=== PATIENT | male | born 1935 | race Caucasian/White ===

== ENCOUNTER 2017-03-18 15:54 | Inpatient (IN) | payer OTHER, BC ==
[~2017-03-18] VITALS: Ht 162.6 cm; Wt 69.0 kg
[~2017-03-18 15:54] MED LIST: LPT40 PO; SULF-183 PO
[2017-03-18 17:57] LABS: BASO % 0.1 %; BASO ABS # 0.01 K/uL (0-0.2); COMPLETE YES; EOS % 0.1 %; HEMATOCRIT 41.8 % (42-52); IG% 0.4 %; LYMPH % 7.3 %; LYMPH ABS # 1.11 K/uL (1.2-3.4); MEAN CELL VOLUME 87.6 fL (80-100); MEAN CORPUSCULAR HEMOGLOBIN 30.2 pg (25-34); MEAN CORPUSCULAR HGB CONC 34.4 g/dl (32-36); MEAN PLATELET VOLUME 10.8 fL (7.4-10.4); MONO % 12.2 %; NEUT % 79.9 %; PLATELET COUNT 309 K/uL (130-400); RED BLOOD COUNT 4.77 M/uL (4.7-6.1); WHITE BLOOD COUNT 15.14 K/uL (4.8-10.8)
[2017-03-18] MEDS ORDERED: POLYETHYLENE (MIRALAX) 17 GM PACK PO PRN (18:00)
[2017-03-18] MEDS ORDERED: ONDANSETRON INJ 2 MG/ML 2 ML VIAL IV PRN (18:00)
[2017-03-18] MEDS ORDERED: MAGNESIUM HYDROXIDE SUSP 30 ML UDC PO PRN (18:00)
[2017-03-18] MEDS ORDERED: ALUMINUM/MAGNESIUM/SIMETH (MAALOX MAX) 30 ML UDC PO PRN (18:00)
[2017-03-18] MEDS ORDERED: ACETAMINOPHEN 325 MG TAB PO PRN (18:00)
--- NOTE | 2017-03-18 18:02 | DIAGNOSTIC IMAGING REPORT ---
CHEST ONE VIEW PORTABLE CLINICAL HISTORY: Hypoxia. COMPARISON STUDY: Chest radiograph February 18, 2015. FINDINGS: The patient is rotated. This likely accounts for mediastinal widening. Cardiac size is at the upper limits of normal. There is no evidence of pulmonary edema. There is a calcified nodule within the left lower lung. Bibasilar opacities favor atelectasis. There is no evidence of pulmonary edema. Skin fold projects over the left chest. IMPRESSION: 1. Bibasilar opacities which favor atelectasis. 2. Rotated study. 3. No evidence of pulmonary edema. Electronically signed by: Jeremy Mercado M.D. 03/18/2017 5:49 PM Dictated Date/Time: 03/18/2017 5:47 PM
[2017-03-18 18:17] LABS: BLOOD UREA NITROGEN 45 mg/dl (7-18); BUN/CREATININE RATIO 32.1 (10-20); CALCIUM 9.6 mg/dl (8.5-10.1); CARBON DIOXIDE 28 mmol/L (21-32); CHLORIDE 104 mmol/L (98-107); GLUCOSE 107 mg/dl (70-99); POTASSIUM 3.9 mmol/L (3.5-5.1); SODIUM 139 mmol/L (136-145)
[2017-03-18] MEDS ORDERED: SODIUM CHLORIDE 0.9% 500ML 500 ML IV SCH (19:00)
[2017-03-18 19:36] LABS: LYME DISEASE AB IGG NEG (NEG); LYME DISEASE AB IGM NEG (NEG)
[2017-03-18] MEDS ORDERED: CEFTRIAXONE SOD INJ 500 MG in DEXTROSE 5% 50ML 50 ML IV ONE (20:00)
[2017-03-18] MEDS ORDERED: AZITHROMYCIN IV 500 MG in DEXTROSE 5% 250ML 250 ML IV ONE (20:30)
[2017-03-18] MEDS: SODIUM CHLOR 0.45% + 20MEQ KCL 1,000 ML IV SCH (20:38)
--- NOTE | 2017-03-18 21:03 | History and Physical ---
History & Physical Date & Time of Service: March 18, 2017 at 21:03 Chief Complaint: Tachycardia, Hypoxia Primary Care Physician: Van Rivas M.D. Past Medical/Surgical History Medical Problems: (1) Bladder dysfunction Status: Chronic (2) Self-catheterizes urinary bladder Status: Chronic (3) UTI (lower urinary tract infection) Status: Resolved Surgical Problems: (1) H/O cystoscopy Status: Resolved (2) H/O lumbar discectomy Status: Resolved Social History Smoking Status: Never Smoker Marital Status: Occupational Status: retired Immunizations Pneumococcal Date: Feb 20, 2015 Multi-Drug Resistant Organisms History of MDRO: No Allergies Coded Allergies: No Known Allergies (Unverified , 02/18/15) Home Medications Scheduled Atorvastatin (Atorvastatin Calcium), 80 MG PO QAM Sulfamethoxazole-Trimethoprim (Smz-Tmp Ds), 1 TAB PO BID Physical Exam Vital Signs Date Time Temp Pulse Resp B/P Pulse Ox O2 Delivery O2 Flow Rate FiO2 03/18/17 20:00 Nasal Cannula 6.0 Diagnostics Laboratory Results Results Past 24 Hours Test 03/18/17 17:45 Range/Units White Blood Count 15.14 4.8-10.8 K/uL Red Blood Count 4.77 4.7-6.1 M/uL Hemoglobin 14.4 14.0-18.0 g/dL Hematocrit 41.8 42-52 % Mean Corpuscular Volume 87.6 80-100 fL Mean Corpuscular Hemoglobin 30.2 25-34 pg Mean Corpuscular Hemoglobin Concent 34.4 32-36 g/dl Platelet Count 309 130-400 K/uL Mean Platelet Volume 10.8 7.4-10.4 fL Neutrophils (%) (Auto) 79.9 % Lymphocytes (%) (Auto) 7.3 % Monocytes (%) (Auto) 12.2 % Eosinophils (%) (Auto) 0.1 % Basophils (%) (Auto) 0.1 % Neutrophils # (Auto) 12.10 1.4-6.5 K/uL Lymphocytes # (Auto) 1.11 1.2-3.4 K/uL Monocytes # (Auto) 1.84 0.11-0.59 K/uL Eosinophils # (Auto) 0.02 0-0.5 K/uL Basophils # (Auto) 0.01 0-0.2 K/uL RDW Standard Deviation 45.2 36.4-46.3 fL RDW Coefficient of Variation 14.0 11.5-14.5 % Immature Granulocyte % (Auto) 0.4 % Immature Granulocyte # (Auto) 0.06 0.00-0.02 K/uL Erythrocyte Sedimentation Rate 71 0-14 mm/hr D-Dimer 2250 0-500 ug/L FEU Sodium Level 139 136-145 mmol/L Potassium Level 3.9 3.5-5.1 mmol/L Chloride Level 104 98-107 mmol/L Carbon Dioxide Level 28 21-32 mmol/L Anion Gap 7.0 3-11 mmol/L Blood Urea Nitrogen 45 7-18 mg/dl Creatinine 1.40 0.60-1.40 mg/dl Estimated GFR () 53.8 Estimated GFR (Non- 46.5 BUN/Creatinine Ratio 32.1 10-20 Random Glucose 107 70-99 mg/dl Calcium Level 9.6 8.5-10.1 mg/dl Total Creatine Kinase 1624 39-308 U/L Troponin I 0.070 0-0.045 ng/ml C-Reactive Protein 25.50 0-0.29 mg/dl Procalcitonin 0.60 0-0.5 ng/ml Lyme Disease IgG Antibody NEG NEG Lyme Disease IgM Antibody NEG NEG Microbiology Results 03/18/17 Blood Culture, Received Pending 03/18/17 Blood Culture, Received Pending Impression Assessment and Plan admit #[id number] VTE Prophylaxis VTE Risk Assessment Done? Y/N: Yes Risk Level: Moderate Given or contraindicated: Enoxaparin (Lovenox)SQ
[2017-03-18] MEDS: DICLOFENAC SOD 1% GEL 100 GM TUBE EXT SCH (21:51)
--- NOTE | 2017-03-18 21:53 | HISTORY & PHYSICAL EXAMINATION ---
DATE OF ADMISSION: 03/18/2017 CHIEF COMPLAINT: Weakness. HISTORY OF PRESENT ILLNESS: The patient is a very pleasant 81-year-old male, somewhat of a poor historian. The history is pieced together between him, his family, and Dr. Rivas. The patient on Friday apparently was doing relatively well, had come over to the family's house, apparently even picked up a granddaughter, was complaining of a stiff neck, but apparently this is an off and on fairly normal thing for him and in fact even that night some friends stopped by his house and took him out for milk shakes. He notes he was not really hungry whenever they went out to eat but not really because he was not feeling well, just because he was not hungry. He went to bed okay Friday night feeling alright. He woke up on the floor Friday morning, not really sure how he got there, not really able to get up. He apparently notes that it is not that abnormal for him to be on the floor and unable to get up, particularly whenever he does not have anything to pull himself up from, the family believing this is probably due to deconditioning. At any rate, he was down on the floor for most of the day and then family came to check on him and found him down, was able to help him get back up, wanted to take him immediately to the Emergency Room, but he refused and then came to see Dr. Rivas the next day. According to the history that he gave to Dr. Rivas, it was slightly different in that he had not been doing well over the last several days, generalized weakness to the point he was unable to stand or ambulate without assistance, son finding him on the floor beside his bed, unable to stand up, not eating well, symptoms occurring over the last several days, anorectic but not vomiting, posterior neck pain, but no other discomfort. No fevers. So overall, the histories were fairly similar. To me, in terms of review of systems, he denies any fevers, chills or sweats. He does have the neck pain. He has no other pain. No chest pain, no shortness of breath. No abdominal pain, nausea, vomiting, diarrhea. No new edema. REVIEW OF SYSTEMS: Otherwise negative except for as above. PAST MEDICAL HISTORY: Includes aortic atherosclerosis, dyslipidemia, GERD, cerebrovascular disease with prior stroke, chronic bladder dysfunction for which he does a straight cath p.r.n., stage III CKD, vitamin D deficiency. HOME MEDICATIONS: Per his list amount to Lipitor 40 mg daily and vitamin D. ALLERGIES: No known drug allergies. SURGICAL HISTORY: Eye surgery, hemorrhoidectomy, hernia repair, lumbar vertebral fusion. FAMILY HISTORY: Includes dementia and hypertension. SOCIAL HISTORY: No significant alcohol or tobacco. He is retired. He is now and lives alone. ALLERGIES: No known drug allergies. PHYSICAL EXAMINATION: VITAL SIGNS: His initial vitals showed a pulse of about 110, pulse ox was in the low 80s, so he was promptly put on 6 liters and now he is about 93, blood pressure I believe was about 100/60, respiratory rate an unlabored 14. GENERAL: He is awake, alert, oriented, fatigue and a little bit of a difficult historian, but pleasant, in no acute distress. HEENT: Normocephalic, atraumatic. Mucous membranes are slightly dry. CARDIOVASCULAR: Tachycardic without rubs, murmurs or gallops. LUNGS: Diminished air entry bibasilar. No real focal findings, maybe slightly coarse, but no rhonchi or wheezes. No accessory muscle use. ABDOMEN: Soft, nondistended, nontender. No masses or organomegaly. EXTREMITIES: Without cyanosis, clubbing or edema. No calf tenderness. SKIN: Shows no rashes, no pallor or icterus. MENTAL STATE: Shows fair recent and remote recall. Normal mood and affect. Fair judgment and insight. MUSCULOSKELETAL: Yields a little bit of bruising around his left knee, but otherwise no joint deformities, normal alignment and mobility. NEUROLOGIC: Shows cranial nerves II-XII to be grossly intact. Gross motor, upper extremities is about 4/5 and equal; lower extremities, his left leg is a bit weaker, probably 4- to 3+/5, particularly at flexion at the hip. He has a negative straight leg raise and has no sensory deficits. He has also got a fairly weak great toe raise on the left compared to the right, the right is probably more like 4 to 4+/5. LABORATORIES AND DIAGNOSTICS: CBC shows a white count of 15.14, hemoglobin 14.4, platelets 309. Sed rate of 71. Basic metabolic panel with sodium 139, potassium 3.9, chloride 104, CO2 of 28, BUN 45, creatinine 1.4, calcium 9.6, glucose 107. CK total of 1624 with a troponin of 0.070. CRP of 25.5 and a procalcitonin of 0.6. Lyme titers which were ordered initially by Dr. Rivas are negative. D-dimer was 2250. Blood cultures are drawn and pending. Chest x-ray, there appeared to be probably a left very small basilar infiltrate to my review. Radiology noted bibasilar opacities, although they related maybe favoring atelectasis, somewhat rotated film, no pulmonary edema. EKG was sinus tach, no ischemic changes. ASSESSMENT AND PLAN: 1. Weakness. Certainly, this appears to be acute on chronic. The family notes he is fairly deconditioned at baseline and appears the acute weakness probably relates to a small community-acquired pneumonia. We will treat the pneumonia, rehydrate him, have PT and OT work with him, and likely he will need rehab stay. 2. Community-acquired pneumonia with acute hypoxic respiratory failure on admission. He was fairly low and requiring fairly significant supplemental oxygen but now appears much more stable. The x-ray is a little nondescript, but given the clinical picture, I would favor pneumonia. Given his labs with acute phase reactants and inflammatory markers and white count all up, certainly this would very much favor pneumonia. We will start him on Zithromax and Rocephin for community-acquired pneumonia and then follow him closely. 3. Mild dehydration. Gentle IV fluids. 4. Elevated troponin is likely demand ischemia. We will trend, and then certainly if it shows any rise, whatsoever, we will definitely need to get an echo if it stays in an extremely low range, possibly simply follow the enzymes. Certainly, nothing about this appears to be acute coronary ischemia. 5. Mild rhabdomyolysis. Fortunately, he appears to be around his baseline range of kidney function right now. We will trend his CPK and ensure that it is going down and follow up his creatinine in the morning. IV fluids as above. 6. Left leg weakness. This may even be a peripheral sciatica from nerve compression from being down on the floor versus lumbar radiculopathy given that he has got the weak great toe raise as well. For now, we will hydrate and treat the pneumonia, see how he does with PT and OT, and then if it persists, follow up imaging and more directed treatment. 7. CKD stage III. He is actually fortunately around his baseline range. 8. Deep venous thrombosis prophylaxis, Lovenox. 9. Hyperlipidemia. Continue his Lipitor.
[2017-03-18 23:31] VITALS: BP 159/91; PULSE 95; TEMP 37.2; O2SAT 100
[2017-03-18] MEDS ORDERED: NURSING VERBAL MED ORDER ONE (23:45)
[2017-03-18] MEDS ORDERED: ZOLPIDEM TARTRATE 5 MG TAB PO PRN (23:45)
[2017-03-18 23:59] VITALS: O2SAT 99
[2017-03-19] VITALS (10 sets, daily range): BP systolic 124–168; BP diastolic 87–107; PULSE 89–117; TEMP 36.8–37.6; O2SAT 97–100; Ht 162.6 cm; Wt 69.0 kg
[2017-03-19 01:25] LABS: CKMB/CK RATIO 0.3 (0-3.0)
[2017-03-19] MEDS: SODIUM CHLOR 0.45% + 20MEQ KCL 1,000 ML IV SCH ×3 (06:32→19:11)
[2017-03-19] MEDS ORDERED: PNEUMOCOCCAL POLYSACCHARIDES 25 MCG/0.5 ML VIAL/SYR IM. ONE (06:45)
[2017-03-19] MEDS ORDERED: PNEUMOCOCCAL ADMINISTRATION CHARGE ONE (06:45)
--- NOTE | 2017-03-19 07:31 | Progress Note ---
Subjective Date of Service: March 19, 2017. Subjective pt was seen this am and complaining of double vision after voltaren gel was placed on his neck, this corrected with monocular vision. Pt appeared somewhat lethargic, sent for stat CT of head which was unremarkable for acute changes, the pt does have h/o vertigo and usually wears glasses which he did not have. no other focal issues Review of Systems Constitutional: + fatigue, + weakness, No chills, No fever Eyes: + diplopia, No discharge, No eye pain, No redness, No worsening of vision Respiratory: No cough, No shortness of breath Cardiac: No chest pain, No edema Abdomen: No diarrhea, No pain, No vomiting Musculoskeletal: No joint pain, No muscle pain Male : No dysuria, No incontinence Psychiatric: + anxiety, + depression symptoms Objective Vital Signs Date Time Temp Pulse Resp B/P Pulse Ox O2 Delivery O2 Flow Rate FiO2 03/19/17 05:41 107 127/90 03/19/17 04:34 37.0 98 16 144/91 97 Room Air 03/19/17 04:00 98 Nasal Cannula 2.0 03/18/17 23:59 99 Nasal Cannula 4.0 03/18/17 23:31 37.2 95 20 159/91 100 Nasal Cannula 4.0 03/18/17 20:00 Nasal Cannula 6.0 Physical Exam General Appearance: + moderate distress, + thin Eyes: PERRL, EOMI, + abnormal EOM (maybe slight strabismus right eye that corrects ) Neck: supple, no JVD Respiratory/Chest: chest non-tender, lungs clear, normal breath sounds Cardiovascular: regular rate, rhythm Abdomen: normal bowel sounds, non tender, soft Extremities: no pedal edema, no calf tenderness Neurologic/Psychiatric: alert, oriented x 3 Laboratory Results Last 24 Hours Test 03/18/17 17:45 03/19/17 00:24 03/19/17 04:44 White Blood Count 15.14 K/uL Red Blood Count 4.77 M/uL Hemoglobin 14.4 g/dL Hematocrit 41.8 % Mean Corpuscular Volume 87.6 fL Mean Corpuscular Hemoglobin 30.2 pg Mean Corpuscular Hemoglobin Concent 34.4 g/dl Platelet Count 309 K/uL Mean Platelet Volume 10.8 fL Neutrophils (%) (Auto) 79.9 % Lymphocytes (%) (Auto) 7.3 % Monocytes (%) (Auto) 12.2 % Eosinophils (%) (Auto) 0.1 % Basophils (%) (Auto) 0.1 % Neutrophils # (Auto) 12.10 K/uL Lymphocytes # (Auto) 1.11 K/uL Monocytes # (Auto) 1.84 K/uL Eosinophils # (Auto) 0.02 K/uL Basophils # (Auto) 0.01 K/uL RDW Standard Deviation 45.2 fL RDW Coefficient of Variation 14.0 % Immature Granulocyte % (Auto) 0.4 % Immature Granulocyte # (Auto) 0.06 K/uL Erythrocyte Sedimentation Rate 71 mm/hr D-Dimer 2250 ug/L FEU Sodium Level 139 mmol/L Potassium Level 3.9 mmol/L Chloride Level 104 mmol/L Carbon Dioxide Level 28 mmol/L Anion Gap 7.0 mmol/L Blood Urea Nitrogen 45 mg/dl Creatinine 1.40 mg/dl Estimated GFR () 53.8 Estimated GFR (Non- 46.5 BUN/Creatinine Ratio 32.1 Random Glucose 107 mg/dl Calcium Level 9.6 mg/dl Total Creatine Kinase 1624 U/L 1166 U/L Troponin I 0.070 ng/ml 0.132 ng/ml C-Reactive Protein 25.50 mg/dl Procalcitonin 0.60 ng/ml Lyme Disease IgG Antibody NEG Lyme Disease IgM Antibody NEG Creatine Kinase MB 3.6 ng/ml Creatine Kinase MB Ratio 0.3 Assessment and Plan 81 M from pcp office with weakness, found on floor by family and unable to get up Weakness. acute on chronic, fairly deconditioned at baseline possible exacerbated by community-acquired pneumonia. PT and OT Diplopia, CT negative ? side affect from voltaren gel? discontinued Community-acquired pneumonia with acute hypoxic respiratory distress on admission. Zithromax and Rocephin Mild dehydration. IV fluids. Elevated troponin / demand ischemia. Does not appear to be acute coronary ischemia. Mild rhabdomyolysis. Hydrate and follow CKD stage III. Deep venous thrombosis prophylaxis, Lovenox.
--- NOTE | 2017-03-19 08:05 | Clinical Documentation Query ---
TANESHA Ramirez : CLINICAL DOCUMENTATION QUERY Clinical documentation includes a diagnosis of: Acute Respiratory Failure. Due to stringent requirements by our coding department, multiple clinical indicators associated with this diagnosis must be present in order for this to be coded/captured within the medical record. If appropriate, please document 2 or more of the following clinical indicators in daily progress notes and the discharge summary. If you feel the diagnosis of acute respiratory failure was made in error, or do not agree with it, simply discontinue documentation thereof. Acute Respiratory Failure indicators include: * Respirations >28 * Air hunger * Use of accessory muscles of respiration * Inability to speak in full sentences * Cyanosis * Pulse ox <90% RA or <95% on O2 *pH <7.35 or >7.45 * pO2 < 60 mm Hg (or 10mm below COPD patient's baseline) * pCO2 >50mm Hg (or 10mm above COPD patient's baseline) * mechanical ventilation * Increased work of breathing * Tachypnea Thank You, Daren Hutchinson, RN [phone]
[2017-03-19] MEDS: DICLOFENAC SOD 1% GEL 100 GM TUBE EXT SCH (08:26)
[2017-03-19] MEDS: ATORVASTATIN 40 MG TAB PO SCH (08:27)
[2017-03-19] MEDS: ENOXAPARIN 40 MG/0.4 ML SYR SQ SCH (08:29)
[2017-03-19 08:51] LABS: BASO % 0.2 %; BASO ABS # 0.02 K/uL (0-0.2); COMPLETE YES; EOS % 0.2 %; HEMATOCRIT 40.4 % (42-52); IG% 0.2 %; LYMPH % 8.4 %; LYMPH ABS # 1.07 K/uL (1.2-3.4); MEAN CELL VOLUME 87.4 fL (80-100); MEAN CORPUSCULAR HEMOGLOBIN 29.4 pg (25-34); MEAN CORPUSCULAR HGB CONC 33.7 g/dl (32-36); MEAN PLATELET VOLUME 10.2 fL (7.4-10.4); MONO % 8.6 %; NEUT % 82.4 %; PLATELET COUNT 303 K/uL (130-400); RED BLOOD COUNT 4.62 M/uL (4.7-6.1); WHITE BLOOD COUNT 12.74 K/uL (4.8-10.8)
[2017-03-19 09:25] LABS: BUN/CREATININE RATIO 25.8 (10-20); CREATININE 1.2 mg/dl (0.60-1.40); POTASSIUM 3.8 mmol/L (3.5-5.1)
[2017-03-19 09:29] LABS: CALCIUM 9.3 mg/dl (8.5-10.1)
[2017-03-19 09:36] LABS: CKMB/CK RATIO 0.4 (0-3.0)
--- NOTE | 2017-03-19 11:07 | DIAGNOSTIC IMAGING REPORT ---
CT HEAD WITHOUT CONTRAST (CT) CLINICAL HISTORY: diplopia WEAKNESS COMPARISON STUDY: MRI the brain dated 02/18/2015 TECHNIQUE: Axial CT of the brain is performed from the vertex to the skull base. IV contrast was not administered for this examination. CT DOSE: 537.48 mGy.cm FINDINGS: No intra or extra-axial mass lesions are visualized. There is no CT evidence of acute cortical infarction. There is no evidence of midline shift. There is no acute hemorrhage. No calvarial fractures are visualized. There are patchy white matter hypodensities likely on a small vessel basis. There is an old lacunar infarct within the left thalamus and basal ganglia. There is an old infarct involving the right basal ganglia and right frontal periventricular deep white matter. There are old lacunar infarcts within the cerebellum. There is no evidence of pathologic ventricular dilatation. There is no evidence of acute sinusitis IMPRESSION: Old ischemic changes. No acute findings. Electronically signed by: Bashir Gee M.D. 03/19/2017 11:05 AM Dictated Date/Time: 03/19/2017 11:03 AM
--- NOTE | 2017-03-19 16:34 | ECHOCARDIOGRAM REPORT ---
*NOTICE TO RECEIVING [employer]Y This information is strictly Confidential and protected under [place] law. [place] law prohibits you from making any further disclosure of this information unless further disclosure is expressly permitted by the written consent of the person to whom it pertains or is authorized by law. A general authorization for the release of medical or other information is not sufficient for this purpose. Hospital accepts no responsibility if the information is made available to any other person, INCLUDING THE PATIENT. Interpretation Summary * Name: ISSA PERALES Study Date: 03/19/2017 03:25 PM BP: 159/107 mmHg * Patient Location: C.2E\S\E210\S\1 HR: 103 * : 1935 (M/d/yyyy) Gender: Male Height: 64 in * Age: 81 yrs Ethnicity: CA Weight: 148 lb * Ordering Physician: Ming Gomez * Referring Physician: Ming Gomez * Performed By: Donna Cavazos RDCS * * Reason For Study: CHEST PAIN * BSA: 1.7 m2 * -- Conclusions -- * Left ventricular systolic function is normal. * No regional wall motion abnormalities noted. * Ejection Fraction = 65-70%. * There is mild concentric left ventricular hypertrophy. * Aortic valve sclerosis. Procedure Details * A complete two-dimensional transthoracic echocardiogram was performed (2D, M-mode, Doppler and color flow Doppler). Left Ventricle * The left ventricle is normal in size. * There is mild concentric left ventricular hypertrophy. * Ejection Fraction = 65-70%. * Left ventricular systolic function is normal. * No regional wall motion abnormalities noted. Right Ventricle * The right ventricle is not well visualized. * The right ventricular systolic function is normal as assessed by tricuspid annular plane systolic excursion (TAPSE) (normal >1.5 cm). Atria * The left atrium is mildly dilated. * Right atrium not well visualized. * No ASD detected; PFO is not assessed. Mitral Valve * The mitral valve is grossly normal. * Significant mitral regurgitation is absent. Tricuspid Valve * The tricuspid valve is not well visualized, but is grossly normal. * Significant tricuspid regurgitation is absent. Aortic Valve * The aortic valve is not well visualized. * The aortic valve opens well. * Aortic valve sclerosis moderate, without significant aortic valvular stenosis. * There is no significant aortic regurgitation. Pulmonic Valve * The pulmonic valve is not well visualized. Great Vessels * The aortic root is normal size. * The pulmonary is not well visualized. Pericardium/Pleural * There is no pericardial effusion. Great Vessels * IVC not well seen. Left Ventricular Diastolic Function * Grade I diastolic dysfunction, (abnormal relaxation pattern). MMode 2D Measurements and Calculations IVSd 1.7 cm IVSs 2.1 cm LVIDd 3.7 cm LVIDs 2.3 cm LVPWd 1.7 cm LVPWs 1.8 cm IVS/LVPW 1.0 FS 37.0 % EDV(Teich) 58.1 ml ESV(Teich) 18.7 ml EF(Teich) 67.8 % EDV(cubed) 50.6 ml ESV(cubed) 12.6 ml EF(cubed) 75.0 % % IVS thick 19.1 % % LVPW thick 9.0 % LV mass(C)d 257.5 grams LV mass(C)dI 149.5 grams/m\S\2 LV mass(C)s 190.7 grams LV mass(C)sI 110.7 grams/m\S\2 SV(Teich) 39.3 ml SI(Teich) 22.8 ml/m\S\2 SV(cubed) 37.9 ml SI(cubed) 22.0 ml/m\S\2 LA dimension 3.9 cm LVAd ap4 23.7 cm\S\2 LVLd ap4 7.5 cm EDV(MOD-sp4) 62.4 ml EDV(sp4-el) 63.4 ml LVAs ap4 12.7 cm\S\2 LVLs ap4 6.7 cm ESV(MOD-sp4) 24.5 ml ESV(sp4-el) 20.6 ml EF(MOD-sp4) 60.8 % EF(sp4-el) 67.6 % LVAd ap2 26.7 cm\S\2 LVLd ap2 8.1 cm EDV(MOD-sp2) 72.6 ml EDV(sp2-el) 74.6 ml LVAs ap2 13.2 cm\S\2 LVLs ap2 6.8 cm ESV(MOD-sp2) 23.3 ml ESV(sp2-el) 21.6 ml EF(MOD-sp2) 67.9 % EF(sp2-el) 71.1 % LVLd %diff 7.1 % EDV(MOD-bp) 69.8 ml LVLs %diff 1.7 % ESV(MOD-bp) 23.7 ml EF(MOD-bp) 66.0 % SV(MOD-sp4) 38.0 ml SI(MOD-sp4) 22.0 ml/m\S\2 SV(MOD-sp2) 49.3 ml SI(MOD-sp2) 28.6 ml/m\S\2 SV(MOD-bp) 46.1 ml SI(MOD-bp) 26.8 ml/m\S\2 SV(sp4-el) 42.9 ml SI(sp4-el) 24.9 ml/m\S\2 SV(sp2-el) 53.0 ml SI(sp2-el) 30.8 ml/m\S\2 Doppler Measurements and Calculations MV E max leigh 56.1 cm/sec MV A max leigh 118.1 cm/sec MV E/A 0.47 MV dec time 0.21 sec Ao V2 max 169.5 cm/sec Ao max PG 11.5 mmHg Ao max PG (full) 7.8 mmHg LV V1 max PG 3.7 mmHg LV V1 max 95.6 cm/sec
[2017-03-19] MEDS ORDERED: NURSING VERBAL MED ORDER ONE (17:45)
[2017-03-19] MEDS ORDERED: CEFTRIAXONE SOD INJ 500 MG in DEXTROSE 5% 50ML 50 ML IV SCH (19:00)
[2017-03-19] MEDS ORDERED: AZITHROMYCIN IV 250 MG in DEXTROSE 5% 250ML 250 ML IV SCH (20:00)
[2017-03-19] MEDS: BOOST VANILLA PO SCH ×2 (20:24)
[2017-03-20] VITALS (8 sets, daily range): BP systolic 120–170; BP diastolic 75–103; PULSE 94–108; TEMP 36.5–37.4; O2SAT 92–100
[2017-03-20] MEDS ORDERED: BACLOFEN 10 MG TAB PO STA (02:10)
[2017-03-20] MEDS ORDERED: NURSING VERBAL MED ORDER ONE ×2 (02:15→05:00)
[2017-03-20] MEDS: METOPROLOL TARTRATE 1 MG/ML VIAL IV PRN (05:07)
[2017-03-20] MEDS ORDERED: HydrALAZINE HCL 20 MG/ML VIAL IV PRN (07:45)
[2017-03-20] MEDS: BACLOFEN 10 MG TAB PO PRN (08:28)
[2017-03-20] MEDS: ENOXAPARIN 40 MG/0.4 ML SYR SQ SCH (08:29)
[2017-03-20] MEDS: ATORVASTATIN 40 MG TAB PO SCH (08:30)
[2017-03-20] MEDS ORDERED: KETOROLAC TROMETHAMINE 15 MG/ML VIAL IV ONE (10:00)
[2017-03-20] MEDS ORDERED: METHYLPREDNISOLONE IV 40 MG in SYRINGE 0 ML IV ONE (10:00)
[2017-03-20] MEDS: BOOST VANILLA PO SCH ×4 (10:37→19:53)
[2017-03-20] MEDS: LEVOFLOXACIN / D5W 500 MG in PREMIXED IN D5W 100 ML IV SCH (10:37)
--- NOTE | 2017-03-20 11:21 | DIAGNOSTIC IMAGING REPORT ---
WRIST MIN 3 VIEWS ROUTINE CLINICAL HISTORY: Right wrist pain. COMPARISON: None FINDINGS: There is chondrocalcinosis within the TFCC. There is mild arthritis of the distal radioulnar joint. No fracture or suspicious lesion is present. There are soft tissue swelling of the right wrist. IMPRESSION: 1. No acute fracture or dislocation of the right wrist. 2. 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 Chondrocalcinosis within the TFCC. 3. Right wrist soft tissue swelling. Electronically signed by: Jeremy Mercado M.D. 03/20/2017 11:20 AM Dictated Date/Time: 03/20/2017 11:18 AM
--- NOTE | 2017-03-20 13:33 | Progress Note ---
Subjective Date of Service: March 20, 2017. Subjective pt has torticolis and right wrist pain today, has some swelling of right wrist, dose not recollect fall injury to wrist Review of Systems Constitutional: No chills, No fever Respiratory: No cough, No shortness of breath, No sputum Cardiac: No chest pain, No edema Abdomen: No diarrhea, No nausea, No pain, No vomiting Male : + problem reported (does require straight cath), No dysuria, No urinary frequency Psychiatric: No anhedonism, No depression symptoms Objective Vital Signs Date Time Temp Pulse Resp B/P Pulse Ox O2 Delivery O2 Flow Rate FiO2 03/20/17 05:07 107 144/103 03/20/17 04:26 37.4 107 22 170/103 99 Nasal Cannula 2.0 03/20/17 04:00 99 Nasal Cannula 2.0 03/20/17 04:00 Nasal Cannula 2.0 03/20/17 00:01 Nasal Cannula 2.0 03/19/17 23:55 37.6 106 26 167/100 99 Nasal Cannula 1.0 163/105 03/19/17 20:00 Nasal Cannula 2.0 03/19/17 19:49 37.4 103 22 168/96 100 Nasal Cannula 2.0 03/19/17 16:22 36.8 97 20 155/93 97 Nasal Cannula 2.0 03/19/17 16:00 Nasal Cannula 2.0 03/19/17 12:26 90 159/107 03/19/17 12:00 Nasal Cannula 2.0 03/19/17 11:18 36.8 89 18 163/106 99 2.0 03/19/17 08:45 117 98 03/19/17 08:00 Nasal Cannula 2.0 Physical Exam General Appearance: WD/WN, + moderate distress Neck: no JVD, + pertinent finding (has tenderness to left posterior neck to palpitations) Respiratory/Chest: chest non-tender, lungs clear, normal breath sounds Cardiovascular: regular rate, rhythm, no murmur Abdomen: normal bowel sounds, non tender, soft Extremities: no pedal edema, no calf tenderness Laboratory Results Last 24 Hours Test 03/19/17 08:43 White Blood Count 12.74 K/uL Red Blood Count 4.62 M/uL Hemoglobin 13.6 g/dL Hematocrit 40.4 % Mean Corpuscular Volume 87.4 fL Mean Corpuscular Hemoglobin 29.4 pg Mean Corpuscular Hemoglobin Concent 33.7 g/dl Platelet Count 303 K/uL Mean Platelet Volume 10.2 fL Neutrophils (%) (Auto) 82.4 % Lymphocytes (%) (Auto) 8.4 % Monocytes (%) (Auto) 8.6 % Eosinophils (%) (Auto) 0.2 % Basophils (%) (Auto) 0.2 % Neutrophils # (Auto) 10.49 K/uL Lymphocytes # (Auto) 1.07 K/uL Monocytes # (Auto) 1.10 K/uL Eosinophils # (Auto) 0.03 K/uL Basophils # (Auto) 0.02 K/uL RDW Standard Deviation 44.6 fL RDW Coefficient of Variation 13.8 % Immature Granulocyte % (Auto) 0.2 % Immature Granulocyte # (Auto) 0.03 K/uL Sodium Level 136 mmol/L Potassium Level 3.8 mmol/L Chloride Level 102 mmol/L Carbon Dioxide Level 25 mmol/L Anion Gap 9.0 mmol/L Blood Urea Nitrogen 31 mg/dl Creatinine 1.20 mg/dl Est Creatinine Clear Calc Drug Dose 39.8 ml/min Estimated GFR () 64.9 Estimated GFR (Non- 56.0 BUN/Creatinine Ratio 25.8 Random Glucose 131 mg/dl Calcium Level 9.3 mg/dl Total Creatine Kinase 773 U/L Creatine Kinase MB 2.8 ng/ml Creatine Kinase MB Ratio 0.4 Troponin I 0.098 ng/ml Assessment and Plan 81 M from pcp office with weakness, found on floor by family and unable to get up Pt was observed to have Henri Hernandez breathing pattern while napping, given diplopia, torticolis and not this 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 acute on chronic, fairly deconditioned at baseline possible exacerbated by community-acquired pneumonia. Does have a urine culture pending and since chronic straight cath, can have issue, PT and OT Diplopia, CT negative ? side affect from voltaren gel? discontinued and symptoms resolved Torticolis, one dose steroids, toradol, may also consider warm compress right wrist,no fracture, use splint Community-acquired pneumonia with acute hypoxic respiratory distress on admission. Zithromax and Rocephin Elevated troponin / demand ischemia. Does not appear to be acute coronary ischemia. CKD stage III. Deep venous thrombosis prophylaxis, Lovenox.
[2017-03-20] MEDS: PROSOURCE NOCARB 30ML/PKT PO SCH (19:53)
--- NOTE | 2017-03-20 20:51 | DIAGNOSTIC IMAGING REPORT ---
ORBIT RADIOGRAPHS 3 VIEWS HISTORY: pre-MRI screening. COMPARISON: None. FINDINGS: There are no radiopaque foreign bodies identified within the orbits. IMPRESSION: No radiopaque foreign bodies identified within the orbits. Electronically signed by: Angel Iqbal M.D. 03/20/2017 8:50 PM Dictated Date/Time: 03/20/2017 8:49 PM
--- NOTE | 2017-03-20 21:37 | DIAGNOSTIC IMAGING REPORT ---
Brain MRI WITHOUT CONTRAST HISTORY: Stroke eval for cava TECHNIQUE: Multiplanar multisequence MRI of the brain was performed without the use of contrast. COMPARISON STUDY: 02/19/2015 FINDINGS: Diffusion-weighted images show several small cortical infarcts in the cerebellar hemispheres bilaterally. Small acute ischemic focus medial aspect right occipital lobe. This suggestive of watershed type process. Moderate chronic small vessel change of the periventricular deep matter regions. Several old periventricular infarct. Age-related atrophy. Mild compensatory prominence of the ventricular system. Sella and parasellar regions are unremarkable. IMPRESSION: 1. Several small acute ischemic foci involving the inferior cerebellar hemispheres bilaterally as well as medial right occipital lobe. 2. Chronic and age-related change as described Electronically signed by: Angel Iqbal M.D. 03/20/2017 9:35 PM Dictated Date/Time: 03/20/2017 9:32 PM
[2017-03-21] VITALS (7 sets, daily range): BP systolic 107–176; BP diastolic 78–96; PULSE 80–123; TEMP 36.3–37.1; O2SAT 90–93
[2017-03-21] MEDS ORDERED: GADAVIST IV PRN (01:30)
[2017-03-21 06:05] LABS: HEMATOCRIT 38.3 % (42-52); MEAN CELL VOLUME 84.9 fL (80-100); MEAN CORPUSCULAR HEMOGLOBIN 28.6 pg (25-34); MEAN CORPUSCULAR HGB CONC 33.7 g/dl (32-36); MEAN PLATELET VOLUME 10.8 fL (7.4-10.4); PLATELET COUNT 349 K/uL (130-400); RED BLOOD COUNT 4.51 M/uL (4.7-6.1); WHITE BLOOD COUNT 17.91 K/uL (4.8-10.8)
--- NOTE | 2017-03-21 06:33 | DIAGNOSTIC IMAGING REPORT ---
MRI OF THE BRAIN WITHOUT AND WITH IV CONTRAST CLINICAL HISTORY: Cerebrovascular accident. Tachycardia. COMPARISON STUDY: Head CT March 19, 2017 and MRI of the brain March 20, 2017 at 9:00 PM. TECHNIQUE: Utilizing a 1.5 Chely magnet and dedicated coil, multiplanar, multiecho imaging of the brain was performed pre and postcontrast administration. IV administration of 6.8 mL of Gadavist contrast was uneventful. FINDINGS: This study is viewed in conjunction with the unenhanced exam which was performed at 9:02 PM. These postcontrast images demonstrate no intracranial mass or pathologic enhancement. The small acute infarcts within the bilateral cerebellar hemispheres do not enhance. There are old lacunar infarcts within the cerebellar hemispheres, left basal ganglia as well as the right basal ganglia. No obstruction collections are present. Ventricular system is stable. Basilar cisterns are patent. IMPRESSION: 1. No intracranial mass or pathologic enhancement. 2. The small acute infarcts within the bilateral cerebellar hemispheres are better depicted on the unenhanced MRI which was performed earlier tonight. These demonstrate no enhancement. 3. Numerous old infarcts, as described above. Electronically signed by: Jeremy Mercado M.D. 03/21/2017 6:32 AM Dictated Date/Time: 03/21/2017 6:28 AM
--- NOTE | 2017-03-21 06:48 | DIAGNOSTIC IMAGING REPORT ---
MRA OF THE INTRACRANIAL CIRCULATION WITHOUT CONTRAST CLINICAL HISTORY: Cerebrovascular accident. COMPARISON STUDY: MRA of the intracranial circulation February 19, 2015. TECHNIQUE: Utilizing a 1.5 Chely magnet and 3-D [id number] technique, unenhanced MRA of the intracranial circulation was obtained. FINDINGS: This exam is mildly compromised by artifact. The M1, M2, A1 and A2 segments are patent. There is smooth mild to moderate narrowing of the distal right vertebral artery. There is also suspected narrowing of the mid to distal aspect of the right posterior cerebral artery. No abrupt vessel cut off is identified. No intracranial aneurysm is identified. IMPRESSION: 1. No intracranial aneurysm or abrupt vessel cut off. 2. Study mildly compromised by artifact. 3. Moderate stenosis of the distal right vertebral artery as well as the mid to distal right posterior cerebral artery. Electronically signed by: Jeremy Mercado M.D. 03/21/2017 6:46 AM Dictated Date/Time: 03/21/2017 6:43 AM
[2017-03-21] MEDS ORDERED: PHARMACIST DISCHARGE MED REC CONSULT PRN (07:30)
--- NOTE | 2017-03-21 07:33 | Progress Note ---
Subjective Date of Service: March 21, 2017. Subjective Pt is slightly lethargic today but appears stable Review of Systems Constitutional: No chills, No fever Respiratory: No cough, No shortness of breath, No sputum Cardiac: No chest pain, No edema, No orthopnea Abdomen: No diarrhea, No nausea, No pain, No vomiting Male : No dysuria, No urinary frequency Objective Vital Signs Date Time Temp Pulse Resp B/P Pulse Ox O2 Delivery O2 Flow Rate FiO2 03/21/17 04:00 92 Nasal Cannula 4.0 03/21/17 04:00 37.1 80 21 134/82 92 Nasal Cannula 4.0 03/21/17 00:15 36.8 107 20 132/90 91 Nasal Cannula 3.0 03/21/17 00:15 91 Nasal Cannula 3.0 03/20/17 20:00 36.9 96 136/87 98 Nasal Cannula 2.0 03/20/17 20:00 Nasal Cannula 2.0 03/20/17 16:00 Nasal Cannula 2.0 03/20/17 15:55 36.8 94 24 120/79 92 Nasal Cannula 2.0 03/20/17 12:00 99 Nasal Cannula 2.0 03/20/17 11:17 36.5 108 20 137/75 93 2.0 03/20/17 08:00 100 Nasal Cannula 2.0 03/20/17 07:48 37.2 96 18 147/91 99 2.0 Physical Exam General Appearance: WD/WN, + mild distress Eyes: PERRL, EOMI Cardiovascular: regular rate, rhythm, no murmur Abdomen: normal bowel sounds, non tender, soft Extremities: no pedal edema, no calf tenderness Neurologic/Psychiatric: alert, oriented x 3, + motor weakness Laboratory Results Last 24 Hours Test 03/21/17 05:46 03/21/17 07:27 White Blood Count 17.91 K/uL Red Blood Count 4.51 M/uL Hemoglobin 12.9 g/dL Hematocrit 38.3 % Mean Corpuscular Volume 84.9 fL Mean Corpuscular Hemoglobin 28.6 pg Mean Corpuscular Hemoglobin Concent 33.7 g/dl RDW Standard Deviation 41.7 fL RDW Coefficient of Variation 13.5 % Platelet Count 349 K/uL Mean Platelet Volume 10.8 fL Creatinine 1.00 mg/dl Est Creatinine Clear Calc Drug Dose 47.7 ml/min Estimated GFR () 80.9 Estimated GFR (Non- 69.8 Assessment and Plan 81 M from pcp office with weakness, found on floor by family and unable to get up, MRI reveals cerebellar stroke Pt was observed to have Henri Hernandez breathing pattern while napping, given diplopia, torticolis acute weakened state, perfromed MRI 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 acute on chronic, fairly deconditioned at baseline possible pending uti eval, PT and OT [facility], one dose steroids, toradol, may also consider warm compress right wrist,no fracture, use splint Elevated troponin / demand ischemia. Does not appear to be acute coronary ischemia. CKD stage III. Deep venous thrombosis prophylaxis, Lovenox.
--- NOTE | 2017-03-21 07:35 | DIAGNOSTIC IMAGING REPORT ---
MR ANGIOGRAM OF THE NECK COMBO CLINICAL HISTORY: Strokelike symptoms. COMPARISON STUDY: MR angiogram of the neck dated 02/19/2015. TECHNIQUE: Axial 3-D [id number] MR angiography of the neck is performed. Subsequently, following the IV administration of 6.8 cc of Gadavist coronal MR angiogram of the neck was performed to corroborate the findings. 3-D reformats are created and assessed. All measurements were calculated based on NASCET criteria. FINDINGS: The examination is degraded by motion artifact. Visualized portions of the thoracic aorta are normal in caliber. The arch demonstrates standard 3-vessel anatomy. The subclavian arteries are widely patent bilaterally. The right common carotid artery is widely patent, as are the right internal and external carotid arteries. The left common carotid artery is widely patent, as are the left internal and external carotid arteries. The vertebral arteries are patent and codominant. The partially visualized intracranial vessels at the skull base appear patent. Jugular veins are patent. IMPRESSION: Unremarkable MR angiogram of the neck. Electronically signed by: Dennis Escalante M.D. 03/21/2017 7:34 AM Dictated Date/Time: 03/21/2017 7:30 AM
[2017-03-21] MEDS: PROSOURCE NOCARB 30ML/PKT PO SCH ×2 (08:06→21:03)
[2017-03-21] MEDS: ATORVASTATIN 40 MG TAB PO SCH (08:06)
[2017-03-21] MEDS: ENOXAPARIN 40 MG/0.4 ML SYR SQ SCH (08:07)
[2017-03-21 08:16] LABS: ESTIMATED AVERAGE GLUCOSE 120 mg/dl; HA1C FLAG Normal (Normal)
[2017-03-21] MEDS ORDERED: ASPIRIN 325 MG ECTAB PO SCH (09:00)
[2017-03-21] MEDS: BOOST VANILLA PO SCH ×4 (10:05→21:03)
--- NOTE | 2017-03-21 10:50 | Neurology Consultation ---
Neurology Consultation Date of Consultation: March 21, 2017. Attending Physician: Ming Gomez M.D. Primary Care Physician: Van Rivas M.D. Reason for Consultation: CVA History of Present Illness Source: patient, family, clinic records, hospital records patient is a poor historian and history was taken from patient, clinic and hospital notes This is an 81 yo m that was sent to the hospital from his PCP office after a fall which occurred at home. According to documented notes and patient the patient had fallen at some point on Friday and was unable to get up for an extended period of time. The patient is unable to state what had happened that he ended up on the floor. He notes he tried to get up however was unable to because there was nothing for him to grab a hold of to get him up. His son had found him on the floor and tried to encourage him to go to the ED but refused and went to the PCP office. According to the notes the patient has had increasing generalized weakness over the past several days as well as anorectic since his from metastatic pancreatic cancer. Since there was concern of his generalized weakness and fall it was recommended to be admitted to the hospital for further evaluation. When admitted to the hospital initial findings reflected an infection that was secondary to CAP and patient was placed on Azithro and Rocephin. He was also noted to demand ischemia and mild rhabdomyolysis. Patient was observed to have Henri bradford breathing pattern overnight, ongoing weakness and an episode of diplopia (possibly secondary to voltaren gel?) so it is understood that further [employer]TAIN evaluation was warranted. An MRI was completed and it was noted that the patient had an infarct in the bilateral inferior cerebellar regions and right occipital as well as moderate stenosis of the distal right vertebral artery and posterior cerebral artery. Patient has had a CVA in the past, 2014. He was started on Lipitor and Plavix as well as ASA at this time. According to the notes the patient actually self discontinued the two drugs approx dec 2016. When asked about the statin he stopped that medication because of knee pain and it is unclear why the plavix was stopped. He did try a lower dose of the lipitor prior to self d/c. He does have a history of hyperlipidemia. He also has a history of "the shakes" which primarily affects his right UE and has been ongoing for years. Multiple family members also had similar symptoms. Past Medical/Surgical History CVA 2014 GERD Urinary Retention- requires a straight cath qid CKD III- BL 1.3-1.5 cr Social History Smoking Status: Never smoker Smokeless Tobacco Use: No Alcohol Use: none Drug Use: none Marital Status: Housing Status: lives alone Occupation Status: retired Allergies Coded Allergies: Gadolinium (Verified Adverse Reaction, Mild, GI SYMPTOMS, 03/21/17) developed nausea Current Inpatient Medications Current Inpatient Medications Medications (Trade) Dose Ordered Sig/Geremias Route Start Time Stop Time Status Last Admin Dose Admin Acetaminophen (Tylenol Tab) 650 mg Q4H PRN PO 03/18/17 18:00 04/17/17 17:59 03/20/17 00:38 650 MG Al Hydrox/Mg Hydrox/Simethicone (Maalox Max Susp) 15 ml Q4H PRN PO 03/18/17 18:00 04/17/17 17:59 Magnesium Hydroxide (Milk Of Magnesia Susp) 30 ml Q12H PRN PO 03/18/17 18:00 04/17/17 17:59 Ondansetron HCl (Zofran Inj) 4 mg Q6H PRN IV 03/18/17 18:00 04/17/17 17:59 Polyethylene (Miralax Powder Packet) 17 gm DAILY PRN PO 03/18/17 18:00 04/17/17 17:59 Atorvastatin Calcium (Lipitor Tab) 80 mg QAM PO 03/19/17 09:00 04/18/17 08:59 03/21/17 08:06 80 MG Enoxaparin Sodium (Lovenox Inj) 40 mg QAM SQ 03/19/17 09:00 04/18/17 08:59 03/21/17 08:07 40 MG Zolpidem Tartrate (Ambien Tab) 5 mg HSZ PRN PO 03/18/17 23:45 04/17/17 23:44 03/18/17 23:52 5 MG Enteral Nutritional Formula (Boost) 1 can BID@1000,2100 PO 03/19/17 21:00 04/18/17 20:59 03/21/17 10:05 1 CAN Baclofen (Lioresal Tab) 10 mg TID PRN PO 03/20/17 03:00 04/19/17 02:59 03/20/17 08:28 10 MG Metoprolol Tartrate (Lopressor Iv) 5 mg Q4H PRN IV 03/20/17 05:00 04/19/17 04:59 03/20/17 05:07 5 MG Hydralazine HCl 10 mg 10 mg Q4H PRN IV 03/20/17 07:45 04/19/17 07:44 03/20/17 08:33 10 MG Levofloxacin/Prmx (Levaquin / D5W/ Premixed D5W) 100 ml @ 100 mls/hr Q24H IV 03/20/17 11:00 03/30/17 10:59 03/20/17 10:37 100 MLS/HR Enteral Nutritional Formula (Prosource No Carb) 30 ml BID PO 03/20/17 21:00 04/19/17 20:59 03/21/17 08:06 30 ML Gadobutrol (Gadavist) 6.8 mmol UD PRN IV 03/21/17 01:30 03/25/17 01:29 Miscellaneous Information (Pharmacist Discharge Med Rec Consult) 1 ea UD PRN N/A 03/21/17 07:30 04/20/17 07:29 Aspirin (Ecotrin Tab) 325 mg QAM PO 03/21/17 09:00 04/20/17 08:59 03/21/17 09:20 325 MG Review of Systems Constitutional: No fever Eyes: No worsening of vision ENT: No hearing loss Respiratory: No shortness of breath Cardiovascular: No chest pain Abdomen: No pain Musculoskeletal: + joint pain (sprain of right wrist) Genitourinary - Male: + urinary retention Neurologic: + balance problems, + weakness Endocrine: No fatigue Physical Exam Vital Signs (Past 24 Hrs): Date Time Temp Pulse Resp B/P Pulse Ox O2 Delivery O2 Flow Rate FiO2 03/21/17 08:34 37.0 113 18 176/96 90 Nasal Cannula 4.0 03/21/17 04:00 92 Nasal Cannula 4.0 03/21/17 04:00 37.1 80 21 134/82 92 Nasal Cannula 4.0 03/21/17 00:15 36.8 107 20 132/90 91 Nasal Cannula 3.0 03/21/17 00:15 91 Nasal Cannula 3.0 03/20/17 20:00 36.9 96 136/87 98 Nasal Cannula 2.0 03/20/17 20:00 Nasal Cannula 2.0 03/20/17 16:00 Nasal Cannula 2.0 03/20/17 15:55 36.8 94 24 120/79 92 Nasal Cannula 2.0 03/20/17 12:00 99 Nasal Cannula 2.0 03/20/17 11:17 36.5 108 20 137/75 93 2.0 General: not in acute distress, patient is resting in bed with forearms flexed, unable to assess gait , oriented to self and place however confused to time ( wrong year and month) Skin: no rashes noted, no suspicious lesions, no areas of inflammations/ lacerations/ erythema noted ENT: inspection of ENT was WNL, no pharyngeal erythema, uvula is midline, tongue is midline Neck: inspection WNL, full ROM of neck MSK: motor is 5/5 in both upper and lower extremities except for 4/5 in the right wrist - this is secondary to pain from the wrist sprain, full ROM of all extremities, sensation intact to temperature, light touch and vibration in all extremities NVS: PERRL, EOMI,no deficiencies noted in the visual vergara, sensation intact to temperature and light touch on [place] points on face, no facial paralysis noted, hearing intact and equal in both ears, patient is able to shrug shoulders to resistance, comprehension is intact- able to assess a picture and describe, language is intact- appropriate responses to question, able to read short phrases, intention tremor noted in the right UE, coordination intact, no ankle clonus, neg babinski, DTR +2 patellar, brachioradialis and biceps Laboratory Results Past 24 Hours: 03/21/17 05:46 03/21/17 05:46 Test 03/21/17 05:46 Red Blood Count 4.51 M/uL (4.7-6.1) Mean Corpuscular Volume 84.9 fL (80-100) Mean Corpuscular Hemoglobin 28.6 pg (25-34) Mean Corpuscular Hemoglobin Concent 33.7 g/dl (32-36) RDW Standard Deviation 41.7 fL (36.4-46.3) RDW Coefficient of Variation 13.5 % (11.5-14.5) Mean Platelet Volume 10.8 fL (7.4-10.4) Est Creatinine Clear Calc Drug Dose 47.7 ml/min Estimated GFR () 80.9 Estimated GFR (Non- 69.8 Estimated Average Glucose 120 mg/dl Hemoglobin A1c 5.8 % (4.5-5.6) Imaging MRA OF THE INTRACRANIAL CIRCULATION WITHOUT CONTRAST CLINICAL HISTORY: Cerebrovascular accident. COMPARISON STUDY: MRA of the intracranial circulation February 19, 2015. TECHNIQUE: Utilizing a 1.5 Chely magnet and 3-D ivln-as-klysis technique, unenhanced MRA of the intracranial circulation was obtained. FINDINGS: This exam is mildly compromised by artifact. The M1, M2, A1 and A2 segments are patent. There is smooth mild to moderate narrowing of the distal right vertebral artery. There is also suspected narrowing of the mid to distal aspect of the right posterior cerebral artery. No abrupt vessel cut off is identified. No intracranial aneurysm is identified. IMPRESSION: 1. No intracranial aneurysm or abrupt vessel cut off. 2. Study mildly compromised by artifact. 3. Moderate stenosis of the distal right vertebral artery as well as the mid to distal right posterior cerebral artery. MRI OF THE BRAIN WITHOUT AND WITH IV CONTRAST CLINICAL HISTORY: Cerebrovascular accident. Tachycardia. COMPARISON STUDY: Head CT March 19, 2017 and MRI of the brain March 20, 2017 at 9:00 PM. TECHNIQUE: Utilizing a 1.5 Chely magnet and dedicated coil, multiplanar, multiecho imaging of the brain was performed pre and postcontrast administration. IV administration of 6.8 mL of Gadavist contrast was uneventful. FINDINGS: This study is viewed in conjunction with the unenhanced exam which was performed at 9:02 PM. These postcontrast images demonstrate no intracranial mass or pathologic enhancement. The small acute infarcts within the bilateral cerebellar hemispheres do not enhance. There are old lacunar infarcts within the cerebellar hemispheres, left basal ganglia as well as the right basal ganglia. No obstruction collections are present. Ventricular system is stable. Basilar cisterns are patent. IMPRESSION: 1. No intracranial mass or pathologic enhancement. 2. The small acute infarcts within the bilateral cerebellar hemispheres are better depicted on the unenhanced MRI which was performed earlier tonight. These demonstrate no enhancement. 3. Numerous old infarcts, as described above. MR ANGIOGRAM OF THE NECK COMBO CLINICAL HISTORY: Strokelike symptoms. COMPARISON STUDY: MR angiogram of the neck dated 02/19/2015. TECHNIQUE: Axial 3-D gsly-mg-hzissh MR angiography of the neck is performed. Subsequently, following the IV administration of 6.8 cc of Gadavist coronal MR angiogram of the neck was performed to corroborate the findings. 3-D reformats are created and assessed. All measurements were calculated based on NASCET criteria. FINDINGS: The examination is degraded by motion artifact. Visualized portions of the thoracic aorta are normal in caliber. The arch demonstrates standard 3-vessel anatomy. The subclavian arteries are widely patent bilaterally. The right common carotid artery is widely patent, as are the right internal and external carotid arteries. The left common carotid artery is widely patent, as are the left internal and external carotid arteries. The vertebral arteries are patent and codominant. The partially visualized intracranial vessels at the skull base appear patent. Jugular veins are patent. IMPRESSION: Unremarkable MR angiogram of the neck. Impression 1. 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 Hyperlipidemia Plan 1. Ischemic stroke - Patient was originally on plavix and would benefit restarting this agent - considering his history of GERD he may not be able to tolerate ASA daily, according to previous notes his PCP actually d/c the ASA during hospital follow up in office from previous CVA in 2014 - He would also benefit from restarting a statin however considering some of the side effects he suffered from either trying the Atorvastatin 40 mg daily again or trying pravastatin 10 mg and titrating up as tolerated 2. Intention tremor - no need for intervention at this time but may benefit from outpt follow up with neuro 3. Hyperlipemia - Statin initiation as above Resident Physician Supervision Note: I was present with Dr. Whitney during the history and exam. I discussed the case with the resident and agree with the findings and plan as documented in the note. Any exceptions or clarifications are listed here: The patient is an 81-year-old male with a chief complaint of weakness. He indicates that he stumbled out of bed Friday morning, 5 days ago, while at home and was unable to get up on his own. He denies muscle pain or diplopia. He does not recall having any particular difficulty with balance or coordination although he is a limited historian. The extent to which his presenting symptoms have persisted during this hospitalization is a bit unclear although he has not been out of bed much over the past few days. He denies vertigo or changes in speech or swallowing. He was diagnosed with community-acquired pneumonia at the time of his [facility] to the [facility]. A brain MRI was completed yesterday which revealed several acute punctate infarcts within both cerebellar hemispheres as well as several chronic appearing lacunar infarcts within the cerebellum and bilateral basal ganglia. He does not have a past medical history of atrial fibrillation. An EKG revealed sinus tachycardia. An echocardiogram revealed a normal ejection fraction, no PFO and was not suggestive of cardioembolic source. MRA of the head revealed a stenosis of the right vertebral artery as well as the right posterior cerebral artery. An MRA of the neck was unremarkable. The patient was not taking antiplatelet medication or anticoagulants at the time of his presentation. He is hypertensive and has standing orders for Lopressor and hydralazine. His statin has been restarted. The patient is a well-developed elderly male in no acute distress. He is alert and oriented to person and place but not specifically to time. He exhibits normal attention and concentration. Short-term memory is mildly impaired. Remote memory intact. He is able to name objects and repeat phrases. He reads text without difficulty. Fund of knowledge and vocabulary normal. Visual vergara full to confrontation. Visual acuity normal. Pupils equal round reactive to light and accommodation. Eye movements normal. There is no nystagmus. There is no facial weakness or facial droop. Palate elevates to midline. Tongue protrudes to midline. Shoulder shrug and hearing intact. Sensation intact to light touch, temperature, vibration, proprioception in all 4 limbs. Deep tendon reflexes are 2+ for the upper and lower extremities bilaterally. Plantar responses downgoing bilaterally. There is mild dysmetria with finger to nose eye laterally. Heel to fisher normal bilaterally. There is a mild intention tremor with finger to nose noted bilaterally as well. Ophthalmoscopic examination reveals normal-appearing optic nerves and posterior elements. No papilledema or hemorrhages. Carotid pulses normal to auscultation, no bruits. Musculoskeletal examination reveals normal strength and tone for all 4 limbs area did no atrophy. Patient does have a very mild bilateral postural and action tremor. No rest tremor. Gait and station not tested due to safety concerns. This patient has had several acute punctate infarcts within both cerebellar hemispheres. His strokes thus localized to the posterior circulation and are consistent with vertebrobasilar disease. There is a stenosis of the right vertebral artery as well as the right posterior cerebral artery noted on angiography. There is also a small ischemic stroke within the right occipital lobe although do not find an obvious left visual field deficit with confrontation testing at this time. At this point, I think antiplatelet therapy would be appropriate either daily low-dose aspirin or Plavix. There is not appear to be an indication for anticoagulation at this time. I also agree with use of a statin as above. PT/OT/speech therapy. Documented By: Daren Sesay
[2017-03-21] MEDS: LEVOFLOXACIN / D5W 500 MG in PREMIXED IN D5W 100 ML IV SCH (11:34)
--- NOTE | 2017-03-21 11:56 | Clinical Documentation Query ---
TANESHA Ramirez : CLINICAL DOCUMENTATION QUERY QUERY 1 OF 2 Patient is an 81 year old male admitted 03/18 for evaluation of weakness, having been found on floor. Acute neurologic changes 03/20 including Henri-Hernandez breathing and diplopia resulted in obtainment of an MRI of the brain which demonstrated "several small acute ischemic foci involving the inferior cerebellar hemispheres bilaterally as well as medial right occipital lobe". Please provide clinical opinion as outlined below as this directly impacts DRG assignment. Thank you. In your clinical opinion is this patient being managed for: ( ) Cerebral infarction, (likely) POA ( ) Cerebral infarction, not POA ( ) Other explanation of clinical findings (Please Explain) ( xx) Unable to determine (Please Define) ( ) Need to Discuss ( ) Not Agree QUERY 2 OF 2 H&P and subsequent documentation included community acquired pneumonia. This has since fallen off the record. If this has been ruled out and is of no clinical significance, consider documentation thereof so as to avoid confusion at the time of discharge. If this is an ongoing/active problem for which he is currently being treated, consider reintroduction of the important clinical diagnosis. Thank you. In your clinical opinion is this patient being managed for: ( ) Pneumonia, POA, treated with IV Levaquin (xx ) Pneumonia, ruled out. ( ) Other explanation of clinical findings (Please Explain) ( ) Unable to determine (Please Define) ( ) Need to Discuss ( ) Not Agree Please clarify and document your clinical opinion in the progress notes and discharge summary. Terms such as "probable", "suspected", "likely", "questionable", "possible", or "still to be ruled out" are acceptable. IF IN AGREEMENT, YOU MUST DOCUMENT ABOVE DIAGNOSTIC STATEMENT IN DAILY PROGRESS NOTES AND DISCHARGE SUMMARY. This document is not part of the patient's record. Thank You, Daren Hutchinson, RN [phone]
[2017-03-22 04:00] VITALS: BP 143/89; PULSE 95; TEMP 37; O2SAT 92
[2017-03-22 07:24] LABS: BASO % 0.1 %; BASO ABS # 0.01 K/uL (0-0.2); COMPLETE YES; EOS % 0.6 %; HEMATOCRIT 37.4 % (42-52); IG% 0.7 %; LYMPH % 9.8 %; LYMPH ABS # 1.09 K/uL (1.2-3.4); MEAN CELL VOLUME 85.6 fL (80-100); MEAN CORPUSCULAR HEMOGLOBIN 29.5 pg (25-34); MEAN CORPUSCULAR HGB CONC 34.5 g/dl (32-36); MEAN PLATELET VOLUME 10.7 fL (7.4-10.4); MONO % 10.8 %; PLATELET COUNT 352 K/uL (130-400); RED BLOOD COUNT 4.37 M/uL (4.7-6.1); WHITE BLOOD COUNT 11.11 K/uL (4.8-10.8)
[2017-03-22 07:52] LABS: BUN/CREATININE RATIO 34.1 (10-20); CALCIUM 8.7 mg/dl (8.5-10.1); CREATININE 0.94 mg/dl (0.60-1.40); POTASSIUM 3.9 mmol/L (3.5-5.1)
[2017-03-22 07:55] LABS: CHOLESTEROL/HDL RATIO 4.6
[2017-03-22 08:00] VITALS: O2SAT 90
[2017-03-22 08:30] VITALS: BP 146/94; PULSE 110; TEMP 36.6; O2SAT 90
[2017-03-22] MEDS: ENOXAPARIN 40 MG/0.4 ML SYR SQ SCH (08:34)
[2017-03-22] MEDS: PROSOURCE NOCARB 30ML/PKT PO SCH (08:34)
[2017-03-22] MEDS: BACLOFEN 10 MG TAB PO PRN (08:34)
[2017-03-22] MEDS: ATORVASTATIN 40 MG TAB PO SCH (08:35)
[2017-03-22] MEDS: BOOST VANILLA PO SCH ×2 (08:36)
[2017-03-22] MEDS: LEVOFLOXACIN / D5W 500 MG in PREMIXED IN D5W 100 ML IV SCH (08:37)
[2017-03-22] MEDS ORDERED: PLV75 PO (08:38)
[2017-03-22] MEDS ORDERED: Boost PO (08:38)
--- NOTE | 2017-03-22 08:39 | Discharge Instructions ---
Discharge Instructions Date of Service March 22, 2017. Admission Reason for Admission: Tachycardia, Hypoxia Discharge Discharge Diagnosis / Problem: cereballar stroke Discharge Goals Goal(s): Diagnostic testing, Therapeutic intervention Activity Recommendations Activity Limitations: as noted below Lifting Limitations: gradually increase as tolerated . Instructions / Follow-Up Instructions / Follow-Up Risk Factors for Stroke: You can reduce your chances of stroke by working with your medical provider to adopt a healthy lifestyle. Some specific ways to lower your chance of stroke are: * If you are a smoker, now is the time to stop smoking cigarettes * If you are diabetic, improve the control of your blood sugars * Avoid excessive amounts of alcohol * Control high blood pressure * Lose weight if you are overweight * Be sure to lead an active lifestyle * Eat a healthy diet low in salt, cholesterol and fat You should know about other risk factors for stroke that you are unable to control. These include: * Age 55 years or older * Male gender * Certain racial groups: , or / * Family History of Stroke, Mini stroke or Heart Attack * Sickle Cell Disease Follow Up: It is important for you to keep your follow up appointments with your medical provider. Current Hospital Diet Patient's current hospital diet: Regular Diet Discharge Diet Recommended Diet: Regular Diet Pending Studies Studies pending at discharge: no Laboratory Results Hemoglobin A1c Test 03/21/17 05:46 Range/Units Estimated Average Glucose 120 mg/dl Hemoglobin A1c 5.8 H 4.5-5.6 % Lipid Panel Test 03/22/17 07:02 Range/Units Triglycerides Level 84 0-150 mg/dl Cholesterol Level 129 0-200 mg/dl HDL Cholesterol 28 mg/dl Cholesterol/HDL Ratio 4.6 LDL Cholesterol, Calculated 84 mg/dl Medical Emergencies . Who to Call and When: Medical Emergencies: Call 911 immediately if you experience any of the following warning signs and symptoms of Stroke: * Sudden numbness or weakness of the face, arm or leg, especially on one side of the body * Sudden confusion, trouble speaking or understanding * Sudden trouble seeing in one or both eyes * Sudden trouble walking, dizziness, loss of balance or coordination * Sudden severe headache with no cause Do not delay calling 911 if you experience any warning signs or symptoms of a stroke. Delay in seeking medical attention may affect what treatments can be given to you. . Non-Emergent Contact Non-Emergency issues call your: Primary Care Provider Call Non-Emergent contact if: temperature is above 101, your pain is unusual for you . . "Provider Documentation" section prepared by Ming Gomez. . Stroke Core Measures Reason no t-PA for Stroke: Treatment not indicated Reason no antithrom by day 2: Treatment provided - N/A Reason no antithrom at D/C: Treatment provided - N/A Reason no statin at D/C: Treatment provided - N/A Reason no anticoag w/a fib: Treatment provided - N/A VTE Core Measure Inpt VTE Proph given/why not?: Enoxaparin (Lovenox)SQ
--- NOTE | 2017-03-22 08:40 | Discharge Instructions ---
Discharge Instructions Date of Service March 22, 2017. Admission Reason for Admission: Tachycardia, Hypoxia Discharge Discharge Diagnosis / Problem: cereballar stroke Discharge Goals Goal(s): Diagnostic testing, Therapeutic intervention Activity Recommendations Activity Level: Assistance Required Therapies: Physical Therapy, Occupational Therapy . Additional Information Patient informed of condition: Yes Advance Directives: Yes DNR: No Level of Care: Acute Rehab Communicable Disease: No Prognosis: Stable Gallegos Catheter: Yes (sort of does require straight cath three times a day) Instructions / Follow-Up Instructions / Follow-Up 81 M from pcp office with weakness, found on floor by family and unable to get up, MRI reveals cerebellar stroke Pt was observed to have Henri Hernandez breathing pattern while napping, given diplopia, [place] acute weakened state, perfromed MRI that shown cerebellar CVA with right occipital CVA, previously on atorvastatin neurology recommends plavix Weakness. acute on chronic, fairly deconditioned at baseline possible initially suspected uti as pt chronically straight caths, culture negative to date, PT and OT, [facility] for acute stroke rehab [place], one dose steroids, toradol, slowly improving right wrist pain,no fracture, use splint Elevated troponin / demand ischemia. Does not appear to be acute coronary ischemia. CKD stage III. Deep venous thrombosis prophylaxis, was Lovenox. Current Hospital Diet Patient's current hospital diet: Regular Diet Discharge Diet Recommended Diet: Regular Diet Pending Studies Studies pending at discharge: no Laboratory Results Hemoglobin A1c Test 03/21/17 05:46 Range/Units Estimated Average Glucose 120 mg/dl Hemoglobin A1c 5.8 H 4.5-5.6 % Lipid Panel Test 03/22/17 07:02 Range/Units Triglycerides Level 84 0-150 mg/dl Cholesterol Level 129 0-200 mg/dl HDL Cholesterol 28 mg/dl Cholesterol/HDL Ratio 4.6 LDL Cholesterol, Calculated 84 mg/dl Medical Emergencies . Who to Call and When: Medical Emergencies: If at any time you feel your situation is an emergency, please call 911 immediately. . Non-Emergent Contact Non-Emergency issues call your: Primary Care Provider Call Non-Emergent contact if: temperature is above 101, your pain is unusual for you . . "Provider Documentation" section prepared by Ming Gomez. . Core Measure Problem Core Measures: Stroke Stroke Core Measures Reason no t-PA for Stroke: Treatment not indicated Reason no antithrom by day 2: Treatment provided - N/A Reason no antithrom at D/C: Treatment provided - N/A Reason no statin at D/C: Treatment provided - N/A Reason no anticoag w/a fib: Treatment provided - N/A
--- NOTE | 2017-03-22 08:52 | Discharge Summary ---
Discharge Summary Date of Service March 22, 2017. Discharge Summary Admission Date: March 18, 2017 at 17:56 Discharge Date: March 22, 2017 Discharge Disposition: Rehab Principal Diagnosis: cerebellar stroke Immunizations: Pneumococcal Date: Feb 20, 2015 Procedures: MRI brain IMPRESSION: 1. Several small acute ischemic foci involving the inferior cerebellar hemispheres bilaterally as well as medial right occipital lobe. 2. Chronic and age-related change as described Echo without embolic focus preserved EF Consultations: Dr Sesay from neurology Medication Reconciliation New Medications: Clopidogrel Bisulfate (Clopidogrel) 75 Mg Tab 75 MG PO QAM, #30 TAB [Boost] () 1 CAN LIQD 1 CAN PO BID@1000,2100, #60 CAN Continued Medications: Atorvastatin (Atorvastatin Calcium) 40 Mg Tab 80 MG PO QAM for 30 Days, TAB Discontinued Medications: Sulfamethoxazole-Trimethoprim (Smz-Tmp Ds) 1 Tab Tab 1 TAB PO BID Started 02/09/15 take for 10 days. Discharge Exam Review of Systems: Constitutional: No chills, No fever Respiratory: No cough, No sputum Cardiovascular: No chest pain, No orthopnea Abdomen: No pain, No vomiting Neurologic: + balance problems, + weakness Physical Exam: General Appearance: WD/WN, + mild distress Eyes: PERRL, EOMI Neck: supple, no JVD Respiratory/Chest: chest non-tender, lungs clear, normal breath sounds Cardiovascular: regular rate, rhythm, no murmur Abdomen / GI: normal bowel sounds, non tender, soft Neurologic/Psychiatric: alert, oriented x 3, + motor weakness Hospital Course 81 M from pcp office with weakness, found on floor by family and unable to get up, MRI reveals cerebellar stroke Pt was observed to have Henri Hernandez breathing pattern while napping, given diplopia, [place] acute weakened state, perfromed MRI that shown cerebellar CVA with right occipital CVA, previously on atorvastatin neurology recommends plavix Weakness. acute on chronic, fairly deconditioned at baseline possible initially suspected uti as pt chronically straight caths, culture negative to date, PT and OT, [facility] [place], one dose steroids, toradol, slowly improving right wrist pain,no fracture, use splint Elevated troponin / demand ischemia. Does not appear to be acute coronary ischemia. CKD stage III. Deep venous thrombosis prophylaxis, was Lovenox. Total Time Spent: Greater than 30 minutes This includes examination of the patient, discharge planning, medication reconciliation, and communication with other providers. Discharge Instructions Please refer to the electronic Patient Visit Report (Discharge Instructions) for additional information.
[2017-03-22] MEDS ORDERED: CLOPIDOGREL BISULFATE 75 MG TAB PO SCH (09:00)
[2017-03-22 12:03] VITALS: BP 151/97; PULSE 120
[2017-03-22] MEDS: METOPROLOL TARTRATE 1 MG/ML VIAL IV PRN (12:04)
[2017-03-22 12:31] VITALS: BP 143/97; PULSE 122; TEMP 36.8; O2SAT 90
[2017-03-22 15:07] VITALS: BP 143/97; PULSE 122; TEMP 36.8; O2SAT 90
[2017-03-23] MEDS ORDERED: DOCU100C31 PO (11:50)
[2017-03-23] MEDS ORDERED: SENN-65 PO (11:50)
[2017-03-23] MEDS ORDERED: ACET-1256 PO (11:52)
[2017-03-23] MEDS ORDERED: POLY335019 PO (11:52)
--- NOTE | 2017-03-25 06:04 | EDITING REQUIRED CODING QUERY ---
CODING QUERY To promote full compliance with coding requirements relating to patient care, provider participation is requested in all cases of binder lockstitch uncertainty. Please assist us with the question(s) below: Coding Question(s): Patient presents with Stroke. Progress notes initially suspect pneumonia with underlying respiratory failure and hypoxia. Please check the phrase that applies regarding pneumonia. Thanks for your help! Tommie Navarro [facility] Physician's Response(s): ____xx Patient was treated for pneumonia during this Inpatient Stay xx Patient does not have pneumonia Cannot clinically correlate if patient has pneumonia x Other/ Please document: initially pneumonia was suspected but ruled out - Principal Diagnosis: "_that condition established after study, to be chiefly responsible for occasioning the admission of the patient to the hospital for care." Co-Existing Principal Diagnosis: "_when two or more diagnoses equally meet the criteria for principal diagnosis as determined by the circumstances of admission, diagnostic work up, and/or therapy provided, and the Alphabetic Index, Tabular List, or another coding guideline does not provide sequencing direction, any one of the diagnoses may be sequenced first." "When the physician has documented what appears to be a current diagnosis in the body of the record, but has not included the diagnosis in the final diagnostic statement, the physician should be asked whether the diagnosis should be added." (Source Coding Clinic 2 QTR90. p3-4)
[2017-03-26] MEDS ORDERED: LEVO-18 PO (09:32)
[2017-03-26] MEDS ORDERED: LCTXP PO (09:32)
[2017-03-26] MEDS ORDERED: FURO40TA3 PO (09:44)
[2017-03-26] MEDS ORDERED: METH4PAK PO (09:54)
== END 2017-03-22 15:25 | DRG 64 ==
LOC: UNDOADMIN 15:54 → C.2E 15:54
PROVIDERS: ADMIT Internal Medicine; ATTEND Internal Medicine
DX: I63.531 Cerebral infarction due to unspecified occlusion or stenosis of right posterior cerebral artery (principal); J96.01 Acute respiratory failure with hypoxia; M62.82 Rhabdomyolysis; I24.8 Other forms of acute ischemic heart disease; I70.0 Atherosclerosis of aorta; K21.9 Gastro-esophageal reflux disease without esophagitis; Z86.73 Personal history of transient ischemic attack (TIA), and cerebral infarction without residual deficits; N18.3 Chronic kidney disease, stage 3 (moderate); E55.9 Vitamin D deficiency, unspecified; E86.0 Dehydration; M43.6 Torticollis; H53.2 Diplopia; R33.9 Retention of urine, unspecified; G25.2 Other specified forms of tremor; I48.91 Unspecified atrial fibrillation; I67.2 Cerebral atherosclerosis

== ENCOUNTER 2017-03-23 11:32 | Inpatient (IN) | payer OTHER, BC ==
[2017-03-23] VITALS (7 sets, daily range): BP systolic 135–141; BP diastolic 83–85; PULSE 94–119; TEMP 36.6–36.7; O2SAT 83–98; Ht 162.6 cm; Wt 65.9 kg
[~2017-03-23] VITALS: Ht 162.6 cm; Wt 65.9 kg
[~2017-03-23 11:32] MED LIST changes: +Boost PO; +PLV75 PO; -SULF-183 PO
[2017-03-23] MEDS ORDERED: SENN-65 PO (11:50)
[2017-03-23] MEDS ORDERED: DOCU100C31 PO (11:50)
[2017-03-23] MEDS ORDERED: ACET-1256 PO (11:52)
[2017-03-23] MEDS ORDERED: POLY335019 PO (11:52)
[2017-03-23] MEDS ORDERED: ALBUT/IPRATROP 3MG/0.5MG NEB 3 ML VIAL INH ONE (12:45)
[2017-03-23 12:50] LABS: HEMATOCRIT 40.4 % (42-52); MEAN CELL VOLUME 85.2 fL (80-100); MEAN CORPUSCULAR HEMOGLOBIN 28.3 pg (25-34); MEAN CORPUSCULAR HGB CONC 33.2 g/dl (32-36); MEAN PLATELET VOLUME 11.2 fL (7.4-10.4); PLATELET COUNT 427 K/uL (130-400); RED BLOOD COUNT 4.74 M/uL (4.7-6.1); WHITE BLOOD COUNT 16.67 K/uL (4.8-10.8)
--- NOTE | 2017-03-23 12:54 | EMERGENCY ROOM VISIT NOTE ---
History Report prepared by Steffany: Ton Houston Under the Supervision of: Dr. Mega Ritchie M.D. First contact with patient: 12:22 Chief Complaint: RESPIRATORY PROBLEMS Stated Complaint: LOW SPO2 Nursing Triage Summary: Pt arrived via ambulance ALS from [facility]. Pt was admitted yesterday to after a right occiptal CVA. According to EMS nursing went in this AM to take pt to physical therapy and pt was found with a pulse ox of 85% on RA. Pt was then placed on 5lpm NC and was then at a pulse ox of 88%. EMS was then called. When EMS arrived the pt was found sitting in a chair stating there is nothing wrong with him. EMS placed pt on a non rebreather and the pt came up to 91%. Pts breath sounds were reported to be diminished through out with rhonchi in the upper lobes. [facility] reported that they thought the pt may have pneumonia. Pt denies any cough. Pts only complaint is bilateral wrist pain from previous fall. Pts wrist a reddened and very tender to touch. Pt had been on oxygen during his admission to hospital, since arrival at pt has only been on RA. History of Present Illness The patient is a 81 year old male who presents to the Emergency Room via ALS with complaints of respiratory problems that began CARETAKER RESORT. The patient was found with an oxygenation level of 85%. He was then placed onto 5lpm NC, and his oxygenation went up to 88%. EMS was then called. When EMS came to the scene, the patient was sitting in a chair stating that nothing was wrong. He was placed on a non-rebreather en route, which brought his saturation to 91%. His breath sounds were reported to be diminished throughout with rhonchi in the upper lobes. [facility] reported that the patient may have pneumonia. His only complaint is that his bilateral wrist hurt secondary to previous falls. He denies any cough. Source of History: patient Onset: CARETAKER RESORT Position: other (Respiratory System) Symptom Intensity: 85% Quality: other (O2 Sat) Timing: other (improving) Associated Symptoms: No cough Note: Bilateral wrist pain. Review of Systems See HPI for pertinent positives & negatives. A total of 10 systems reviewed and were otherwise negative. Past Medical & Surgical Medical Problems: (1) Bladder dysfunction (2) Hypoxia (3) Self-catheterizes urinary bladder (4) UTI (lower urinary tract infection) Surgical Problems: (1) H/O cystoscopy (2) H/O lumbar discectomy Family History Omitted secondary to age. Social History Smoking Status: Never Smoker Smokeless Tobacco Use: No Drug Use: none Marital Status: Housing Status: lives alone Occupation Status: retired Current/Historical Medications Scheduled Atorvastatin (Atorvastatin Calcium), 80 MG PO QAM Clopidogrel Bisulfate (Clopidogrel), 75 MG PO QAM Docusate Sodium (Docusate Sodium), 1 CAP PO BID Senna/Docusate Sod (Senokot S), 1 TAB PO QD Scheduled PRN Acetaminophen (Tylenol), 500 MG PO Q4 PRN for Pain or Fever Polyethylene Glycol 3350 (Miralax), 17 GM PO DAILY PRN for Constipation Allergies Coded Allergies: Gadolinium (Verified Adverse Reaction, Mild, GI SYMPTOMS, 03/23/17) developed nausea Physical Exam Vital Signs Date Time Temp Pulse Resp B/P Pulse Ox O2 Delivery O2 Flow Rate FiO2 03/23/17 15:14 112 20 159/101 97 BiPAP 03/23/17 13:41 104 20 176/98 100 BiPAP 03/23/17 13:13 117 93 80 03/23/17 13:12 117 22 93 BiPAP/CPAP 80 03/23/17 12:45 87 Room Air 03/23/17 12:30 112 28 159/99 88 Non-Rebreather 10.0 03/23/17 12:26 108 03/23/17 12:15 108 165/108 91 Non-Rebreather 10.0 03/23/17 11:48 Room Air 87 03/23/17 11:48 36.8 112 29 154/107 87 Room Air 03/23/17 11:38 87 Room Air Physical Exam GENERAL: Patient is a healthy-appearing well-nourished HEAD: Normocephalic atraumatic EYES: Ocular movements intact pupils equal and react to light OROPHARYNX mucous membranes are moist no exudates present no erythema or edema present NECK: Supple no nuchal rigidity CHEST: Good equal expansion LUNGS: Diffuse rales on exam. CARDIAC: Normal S1 and S2 ABDOMEN: Soft nontender no guarding BACK: No CVA tenderness EXTREMITIES: No pain upon palpation normal muscle strength in all groups no clubbing cyanosis or edema NEURO: Patient is following commands is answering questions appropriately. Alert and oriented x3 Cranial Nerves 2-12 grossly intact Medical Decision & Procedures ER Provider Diagnostic Interpretation: Radiology results as stated below per my review and radiologist interpretation: CHEST ONE VIEW PORTABLE CLINICAL HISTORY: Axial COMPARISON STUDY: 04-02 FINDINGS: The cardiac and mediastinal contours remain stable. There are bibasilar opacities, likely atelectatic. There is blunting of the lateral costophrenic angle suggesting trace effusions. There is mild central vascular prominence without evidence of overt edema.[ IMPRESSION: 1. Bibasilar opacities statistically atelectatic 2. Trace pleural effusions Electronically signed by: Bashir Gee M.D. 03/23/2017 12:52 PM Dictated Date/Time: 03/23/2017 12:[address] ANGIOGRAM OF THE CHEST CLINICAL HISTORY: Atypical chest pain COMPARISON STUDY: 03/23/2017 TECHNIQUE: Following the IV administration of 90 mL of Optiray-320, CT angiogram of the thorax was performed from the thoracic inlet to the lung bases utilizing the pulmonary embolus protocol. Images are reviewed in the axial, sagittal, and coronal planes. IV contrast was administered without complication. MIP imaging was performed. CT DOSE: 194.69 mGy.cm FINDINGS: No pathologically enlarged axillary mediastinal or hilar lymph nodes were visualized. There was no evidence of thoracic aortic dilatation. There were no pulmonary artery filling defects to indicate acute pulmonary embolism. No pleural effusions are visualized. There is minor subpleural interstitial thickening. There are by basilar opacities statistically atelectatic. Clinical correlation is recommended to help exclude a coexistent infectious process. There are low lung volumes. There is a left lower lobe calcified granuloma. There is a 2 mm solid left upper lobe pulmonary nodule IMPRESSION: 1. No evidence of acute pulmonary embolism 2. Low lung volumes with bibasilar opacities statistically atelectatic Electronically signed by: Bashir Gee M.D. 03/23/2017 1:34 PM Dictated Date/Time: 03/23/2017 1:30 PM Laboratory Results 03/23/17 11:20 Red Blood Count 4.74, Mean Corpuscular Volume 85.2, Mean Corpuscular Hemoglobin 28.3, Mean Corpuscular Hemoglobin Concent 33.2, Mean Platelet Volume 11.2, Neutrophils (%) (Auto) 79.5, Lymphocytes (%) (Auto) 12.1, Monocytes (%) (Auto) 7.4, Eosinophils (%) (Auto) 0.1, Basophils (%) (Auto) 0.1, Neutrophils # (Auto) 13.26, Lymphocytes # (Auto) 2.02, Monocytes # (Auto) 1.23, Eosinophils # (Auto) 0.01, Basophils # (Auto) 0.01 03/23/17 11:20 Test 03/23/17 11:20 03/23/17 13:18 03/23/17 14:13 03/23/17 14:45 White Blood Count 16.67 K/uL (4.8-10.8) Red Blood Count 4.74 M/uL (4.7-6.1) Hemoglobin 13.4 g/dL (14.0-18.0) Hematocrit 40.4 % (42-52) Mean Corpuscular Volume 85.2 fL (80-100) Mean Corpuscular Hemoglobin 28.3 pg (25-34) Mean Corpuscular Hemoglobin Concent 33.2 g/dl (32-36) Platelet Count 427 K/uL (130-400) Mean Platelet Volume 11.2 fL (7.4-10.4) Neutrophils (%) (Auto) 79.5 % Lymphocytes (%) (Auto) 12.1 % Monocytes (%) (Auto) 7.4 % Eosinophils (%) (Auto) 0.1 % Basophils (%) (Auto) 0.1 % Neutrophils # (Auto) 13.26 K/uL (1.4-6.5) Lymphocytes # (Auto) 2.02 K/uL (1.2-3.4) Monocytes # (Auto) 1.23 K/uL (0.11-0.59) Eosinophils # (Auto) 0.01 K/uL (0-0.5) Basophils # (Auto) 0.01 K/uL (0-0.2) RDW Standard Deviation 42.7 fL (36.4-46.3) RDW Coefficient of Variation 13.8 % (11.5-14.5) Immature Granulocyte % (Auto) 0.8 % Immature Granulocyte # (Auto) 0.14 K/uL (0.00-0.02) Prothrombin Time 13.0 SECONDS (9.0-12.0) Prothromb Time International Ratio 1.2 (0.9-1.1) Anion Gap 8.0 mmol/L (3-11) Est Creatinine Clear Calc Drug Dose 42.3 ml/min Estimated GFR () 72.1 Estimated GFR (Non- 62.2 BUN/Creatinine Ratio 26.9 (10-20) Calcium Level 9.2 mg/dl (8.5-10.1) Total Bilirubin 0.7 mg/dl (0.2-1) Aspartate Amino Transf (AST/SGOT) 51 U/L (15-37) Alanine Aminotransferase (ALT/SGPT) 57 U/L (12-78) Alkaline Phosphatase 226 U/L (45-117) Total Creatine Kinase 99 U/L (39-308) Creatine Kinase MB 1.0 ng/ml (0.5-3.6) Creatine Kinase MB Ratio 1.0 (0-3.0) Troponin I < 0.015 ng/ml (0-0.045) Total Protein 7.3 gm/dl (6.4-8.2) Albumin 2.4 gm/dl (3.4-5.0) Globulin 4.9 gm/dl (2.5-4.0) Albumin/Globulin Ratio 0.5 (0.9-2) Procalcitonin 0.54 ng/ml (0-0.5) Influenza Type A (RT-PCR) Neg for Influ A (NEG) Influenza Type A Antigen Neg for Influ A (NEG) Influenza Type B Antigen Neg for Influ B (NEG) Influenza Type B (RT-PCR) Neg for Influ B (NEG) Urine Color DK YELLOW Urine Appearance CLEAR (CLEAR) Urine pH 5.0 (4.5-7.5) Urine Specific [place] 1.025 (1.000-1.030) Urine Protein TRACE (NEG) Urine Glucose (UA) NEG (NEG) Urine Ketones TRACE (NEG) Urine Occult Blood NEG (NEG) Urine Nitrite NEG (NEG) Urine Bilirubin NEG (NEG) Urine Urobilinogen NEG (NEG) Urine Leukocyte Esterase NEG (NEG) Urine WBC (Auto) 1-5 /hpf (0-5) Urine RBC (Auto) 0-4 /hpf (0-4) Urine Hyaline Casts (Auto) 0 /lpf (0-5) Urine Epithelial Cells (Auto) 5-10 /lpf (0-5) Urine Bacteria (Auto) NEG (NEG) Arterial Blood pH 7.48 (7.35-7.45) Arterial Blood Partial Pressure CO2 31 mmHg (35-46) Arterial Blood Partial Pressure O2 203 mm/Hg (80-95) Arterial Blood HCO3 22 mmol/L (19-24) Arterial Blood Oxygen Saturation 99.6 % (90-95) Arterial Blood Base Excess -0.5 mEq/L (-9-1.8) Arterial Blood Gas Delivery 7L Uriah Test POS (POS) Labs reviewed by ED physician. Medications Administered Medications (Trade) Dose Ordered Sig/Geremias Route Start Time Stop Time Status Last Admin Dose Admin Albuterol/ Ipratropium 12 ml 12 ml ONE ONCE INH 03/23/17 12:45 03/23/17 12:46 DC 03/23/17 12:55 12 ML Sodium Chloride (Nss 500ml) 500 ml @ 999 mls/hr Q31M STAT IV 03/23/17 12:58 03/23/17 13:28 DC 03/23/17 13:25 999 MLS/HR Methylprednisolone Sodium Succinate (Solu-Medrol IV) 60 mg NOW STAT IV 03/23/17 12:58 03/23/17 12:59 DC 03/23/17 13:38 60 MG ECG Indication: SOB/dyspnea Rate (beats per minute): 108 Rhythm: sinus tachycardia Findings: no acute ischemic change, no ectopy ED Course 1222: Past medical records reviewed. The patient was evaluated in room C6. A complete history and physical examination was performed. 1245: Ordered Duoneb 12 ml INH 1258: Ordered Solu-Medrol IV 60 mg IV, Sodium Chloride 500 ml @ 999 mls/hr IV 1407: Upon reexamination the patient is resting. I discussed results and treatment plan with the patient. He verbalizes agreement and understanding. I spoke with Dr. Sanders from the [place] [facility]. The patient will be evaluated for further management. Medical Decision Differential diagnosis: Etiologies such as infections, reactive airway disease, pneumonia, pneumothorax , COPD, CHF, cardiac ischemia, pulmonary embolism, musculoskeletal, gastrointestinal, as well as others were entertained. This is an 81-year-old male who presents emergency department complaining of hypoxia. [facility] and he is currently hypoxic on a nonrebreather mask. For this reason the patient was given BiPAP and given an hour-long breathing treatment. Because of the hypoxia the patient was sent for CAT scan of the chest which did not show any evidence of PE. The patient does have an elevation in his white blood count. He was given Solu- Medrol in the emergency department. Because he continues to be on BiPAP I did discuss the case with the hospitalist service who agreed to admit the patient. Patient family were in agreement with treatment plan. Consults Time Called: 1402 Consulting Physician: Dr. Marilyn OLIVERA Returned Call: 1407 He will be evaluating the patient for further management. Impression Primary Impression: Hypoxia Scribe Attestation The scribe's documentation has been prepared under my direction and personally reviewed by me in its entirety. I confirm that the note above accurately reflects all work, treatment, procedures, and medical decision making performed by me. Departure Information Dispostion Being Evaluated By Hospitalist Referrals Van Rivas M.D. (PCP) Patient Instructions My [facility]
[2017-03-23 12:56] LABS: INR 1.2 (0.9-1.1)
[2017-03-23 12:58] LABS: ALT/SGPT 57 U/L (12-78); AST/SGOT 51 U/L (15-37); BLOOD UREA NITROGEN 30 mg/dl (7-18); BUN/CREATININE RATIO 26.9 (10-20); CALCIUM 9.2 mg/dl (8.5-10.1); CARBON DIOXIDE 27 mmol/L (21-32); CHLORIDE 102 mmol/L (98-107); GLUCOSE 116 mg/dl (70-99); POTASSIUM 4.1 mmol/L (3.5-5.1); SODIUM 137 mmol/L (136-145)
[2017-03-23] MEDS ORDERED: SODIUM CHLORIDE 0.9% 500ML 500 ML IV STA (12:58)
[2017-03-23] MEDS ORDERED: METHYLPREDNISOLONE 125 MG VIAL IV STA (12:58)
[2017-03-23 13:03] LABS: ALB/GLOB RATIO 0.5 (0.9-2); ALKALINE PHOSPHATASE 226 U/L (45-117)
[2017-03-23] MEDS ORDERED: OPTIRAY 320 IV PRN (13:15)
[2017-03-23 13:29] LABS: BASO % 0.1 %; BASO ABS # 0.01 K/uL (0-0.2); COMPLETE YES; EOS % 0.1 %; IG% 0.8 %; LYMPH % 12.1 %; LYMPH ABS # 2.02 K/uL (1.2-3.4); MONO % 7.4 %; NEUT % 79.5 %
--- NOTE | 2017-03-23 13:36 | DIAGNOSTIC IMAGING REPORT ---
CT ANGIOGRAM OF THE CHEST CLINICAL HISTORY: Atypical chest pain COMPARISON STUDY: 03/23/2017 TECHNIQUE: Following the IV administration of 90 mL of Optiray-320, CT angiogram of the thorax was performed from the thoracic inlet to the lung bases utilizing the pulmonary embolus protocol. Images are reviewed in the axial, sagittal, and coronal planes. IV contrast was administered without complication. MIP imaging was performed. CT DOSE: 194.69 mGy.cm FINDINGS: No pathologically enlarged axillary mediastinal or hilar lymph nodes were visualized. There was no evidence of thoracic aortic dilatation. There were no pulmonary artery filling defects to indicate acute pulmonary embolism. No pleural effusions are visualized. There is minor subpleural interstitial thickening. There are by basilar opacities statistically atelectatic. Clinical correlation is recommended to help exclude a coexistent infectious process. There are low lung volumes. There is a left lower lobe calcified granuloma. There is a 2 mm solid left upper lobe pulmonary nodule IMPRESSION: 1. No evidence of acute pulmonary embolism 2. Low lung volumes with bibasilar opacities statistically atelectatic Electronically signed by: Bashir Gee M.D. 03/23/2017 1:34 PM Dictated Date/Time: 03/23/2017 1:30 PM
[2017-03-23 14:30] LABS: URINE APPEARANCE CLEAR (CLEAR); URINE COLOR DK YELLOW; URINE NITRITE NEG (NEG); URINE SPECIFIC GRAVITY 1.025 (1.000-1.030); UROBILINOGEN NEG (NEG); ZZURINE CULT IF INDIC CATH NO
[2017-03-23 14:37] LABS: MANUAL MICROSCOPIC REQUIRED? NO; REVIEW REQ? NO; URINE BILIRUBIN NEG (NEG)
[2017-03-23 14:58] LABS: ARTERIAL BLD GAS O2 SATURATION 99.6 % (90-95); ARTERIAL BLOOD GAS BASE EXCESS -0.5 mEq/L (-9-1.8); ARTERIAL BLOOD GAS HCO3 22 mmol/L (19-24); ARTERIAL BLOOD GAS PO2 203 mm/Hg (80-95); ARTERIAL BLOOD GAS pH 7.48 (7.35-7.45)
[2017-03-23 15:00] LABS: ALLEN TEST POS (POS); O2 ADMINISTRATION 7L
[2017-03-23] MEDS ORDERED: ONDANSETRON INJ 2 MG/ML 2 ML VIAL IV PRN (15:00)
[2017-03-23] MEDS ORDERED: ACETAMINOPHEN 325 MG TAB PO PRN (15:00)
[2017-03-23] MEDS ORDERED: ALUMINUM/MAGNESIUM/SIMETH (MAALOX MAX) 30 ML UDC PO PRN (15:00)
--- NOTE | 2017-03-23 15:26 | History and Physical ---
History & Physical Date & Time of Service: March 23, 2017 at 14:50 Chief Complaint: Low Spo2 Primary Care Physician: Van Rivas M.D. History of Present Illness Source: patient, friend Pt is a pleasant 81 yo male with hx of CKD stage 3, recent occipital stroke just 2 days ago who was brought from [facility] after nursing found the pt to have a pulse ox of 85% during physical therapy. Pt was placed on NC which only sustained him in the high 80s. EMS arrived and placed pt on NRB. Pt denies any complaints this AM. Pt denies any fevers, chills, cough, shortness of breath, chest pain or palpitations. Difficult to obtain pt due to somnolence. Most of hx obtained by family friend at bedside and EMS/ER records. Pt was NOT on O2 at HS but was treated for a CAP during his last hospitalization. Pt reports taking ASA and plavix. Upon arrival to ER, pt noted to have leukocytosis of 16. CXR and CTA performed with 2 cm upper pulm nodules and bibasilar opacities. Past Medical/Surgical History Medical Problems: (1) Bladder dysfunction Status: Chronic (2) Self-catheterizes urinary bladder Status: Chronic (3) UTI (lower urinary tract infection) Status: Resolved Surgical Problems: (1) H/O cystoscopy Status: Resolved (2) H/O lumbar discectomy Status: Resolved Social History Smoking Status: Never Smoker Smokeless Tobacco Use: No Drug Use: none Marital Status: Occupational Status: retired Immunizations Pneumococcal Date: Feb 20, 2015 Multi-Drug Resistant Organisms History of MDRO: No Allergies Coded Allergies: Gadolinium (Verified Adverse Reaction, Mild, GI SYMPTOMS, 03/23/17) developed nausea Home Medications Scheduled Atorvastatin (Atorvastatin Calcium), 80 MG PO QAM Clopidogrel Bisulfate (Clopidogrel), 75 MG PO QAM Docusate Sodium (Docusate Sodium), 1 CAP PO BID Senna/Docusate Sod (Senokot S), 1 TAB PO QD Scheduled PRN Acetaminophen (Tylenol), 500 MG PO Q4 PRN for Pain or Fever Polyethylene Glycol 3350 (Miralax), 17 GM PO DAILY PRN for Constipation Review of Systems Constitutional: + fatigue, + weakness, No chills, No fever Respiratory: No cough, No dyspnea at rest, No dyspnea on exertion, No shortness of breath, No sputum, No wheezing Cardiovascular: No chest pain, No orthopnea Abdomen: No diarrhea, No nausea, No pain, No vomiting Musculoskeletal: + joint pain (wrist pain), No muscle pain Genitourinary - Male: No dysuria, No hematuria, No urinary frequency Psychiatric: No anxiety, No depression symptoms Physical Exam Vital Signs Date Time Temp Pulse Resp B/P Pulse Ox O2 Delivery O2 Flow Rate FiO2 03/23/17 13:41 104 20 176/98 100 BiPAP 03/23/17 13:13 117 93 80 03/23/17 13:12 117 22 93 BiPAP/CPAP 80 03/23/17 12:45 87 Room Air 03/23/17 12:30 112 28 159/99 88 Non-Rebreather 10.0 03/23/17 12:26 108 03/23/17 12:15 108 165/108 91 Non-Rebreather 10.0 03/23/17 11:48 Room Air 87 03/23/17 11:48 36.8 112 29 154/107 87 Room Air 03/23/17 11:38 87 Room Air General Appearance: WD/WN, no apparent distress Neck: supple, no adenopathy Respiratory/Chest: chest non-tender, + accessory muscle use Cardiovascular: no edema, no gallop Abdomen/GI: non tender, soft Back: normal inspection, no CVA tenderness Neurologic/Psych: normal mood/affect, oriented x 3 Diagnostics Laboratory Results Results Past 24 Hours Test 03/23/17 11:20 03/23/17 13:18 03/23/17 14:08 03/23/17 14:13 Range/Units White Blood Count 16.67 4.8-10.8 K/uL Red Blood Count 4.74 4.7-6.1 M/uL Hemoglobin 13.4 14.0-18.0 g/dL Hematocrit 40.4 42-52 % Mean Corpuscular Volume 85.2 80-100 fL Mean Corpuscular Hemoglobin 28.3 25-34 pg Mean Corpuscular Hemoglobin Concent 33.2 32-36 g/dl Platelet Count 427 130-400 K/uL Mean Platelet Volume 11.2 7.4-10.4 fL Neutrophils (%) (Auto) 79.5 % Lymphocytes (%) (Auto) 12.1 % Monocytes (%) (Auto) 7.4 % Eosinophils (%) (Auto) 0.1 % Basophils (%) (Auto) 0.1 % Neutrophils # (Auto) 13.26 1.4-6.5 K/uL Lymphocytes # (Auto) 2.02 1.2-3.4 K/uL Monocytes # (Auto) 1.23 0.11-0.59 K/uL Eosinophils # (Auto) 0.01 0-0.5 K/uL Basophils # (Auto) 0.01 0-0.2 K/uL RDW Standard Deviation 42.7 36.4-46.3 fL RDW Coefficient of Variation 13.8 11.5-14.5 % Immature Granulocyte % (Auto) 0.8 % Immature Granulocyte # (Auto) 0.14 0.00-0.02 K/uL Prothrombin Time 13.0 9.0-12.0 SECONDS Prothromb Time International Ratio 1.2 0.9-1.1 Sodium Level 137 136-145 mmol/L Potassium Level 4.1 3.5-5.1 mmol/L Chloride Level 102 98-107 mmol/L Carbon Dioxide Level 27 21-32 mmol/L Anion Gap 8.0 3-11 mmol/L Blood Urea Nitrogen 30 7-18 mg/dl Creatinine 1.10 0.60-1.40 mg/dl Est Creatinine Clear Calc Drug Dose 42.3 ml/min Estimated GFR () 72.1 Estimated GFR (Non- 62.2 BUN/Creatinine Ratio 26.9 10-20 Random Glucose 116 70-99 mg/dl Calcium Level 9.2 8.5-10.1 mg/dl Total Bilirubin 0.7 0.2-1 mg/dl Aspartate Amino Transf (AST/SGOT) 51 15-37 U/L Alanine Aminotransferase (ALT/SGPT) 57 12-78 U/L Alkaline Phosphatase 226 45-117 U/L Total Creatine Kinase 99 39-308 U/L Creatine Kinase MB 1.0 0.5-3.6 ng/ml Creatine Kinase MB Ratio 1.0 0-3.0 Troponin I < 0.015 0-0.045 ng/ml Total Protein 7.3 6.4-8.2 gm/dl Albumin 2.4 3.4-5.0 gm/dl Globulin 4.9 2.5-4.0 gm/dl Albumin/Globulin Ratio 0.5 0.9-2 Influenza Type A Antigen Neg for Influ A NEG Influenza Type B Antigen Neg for Influ B NEG Urine Color DK YELLOW Urine Appearance CLEAR CLEAR Urine pH 5.0 4.5-7.5 Urine Specific [place] 1.025 1.000-1.030 Urine Protein TRACE NEG Urine Glucose (UA) NEG NEG Urine Ketones TRACE NEG Urine Occult Blood NEG NEG Urine Nitrite NEG NEG Urine Bilirubin NEG NEG Urine Urobilinogen NEG NEG Urine Leukocyte Esterase NEG NEG Urine WBC (Auto) 1-5 0-5 /hpf Urine RBC (Auto) 0-4 0-4 /hpf Urine Hyaline Casts (Auto) 0 0-5 /lpf Urine Epithelial Cells (Auto) 5-10 0-5 /lpf Urine Bacteria (Auto) NEG NEG Impression Assessment and Plan Acute hypoxic resp failure like secondary to HCAP - Pt recently treated for CAP during most previous admission with rocephin and azithromax. Will utilize zosyn, levaquin and vanc at this time. Noted leukocytosis of 16.67 on admission. Will check procalcitonin and obtain blood and sputum cultues. Will continue to trend CBC. CTA chest ? bibasiliar opacities, but possibly from atelectasis. Will utilize incentive spirometry. Cont O2 support and also check ABG. Recent occipital stroke - Cont atorvastatin and plavix. If worsening confusion, may need to repeat imaging for ?extension of stroke that may possibly be affecting respiratory drive. 2mm left upper lobe nodule, very small in size, likely from PNA. Cont to monitor CKD stage III, tachycardia noted, will utilize IVF of NS at 75 cc/hr and trend BMP Deep venous thrombosis prophylaxis with heparin Dyslipidemia Continue his Lipitor.
[2017-03-23 15:35] LABS: INFLUENZA A PCR Neg for Influ A (NEG); INFLUENZA B PCR Neg for Influ B (NEG)
[2017-03-23] MEDS: ALBUT/IPRATROP 3MG/0.5MG NEB 3 ML VIAL INH SCH ×2 (16:00→19:34)
--- NOTE | 2017-03-23 16:03 | Pharmacy Progress Note ---
Pharmacy Antibiotic Consult Date of Service: March 23, 2017. Pharmacy Dosing Scope Pharmacy is consulted to initiate Vancomycin/Zosyn/Levaquin IV dosing therapy, order appropriate labs and adjust drug dose/frequency. Subjective The patient is a 81 year old male admitted on 03/23/17. Objective Height (Feet): 5 Height (Inches): 1.00 Weight (Kilograms): 66.000 Lab Results (24hrs): Test 03/23/17 11:20 03/23/17 13:18 03/23/17 14:13 03/23/17 14:45 White Blood Count 16.67 K/uL (4.8-10.8) Red Blood Count 4.74 M/uL (4.7-6.1) Hemoglobin 13.4 g/dL (14.0-18.0) Hematocrit 40.4 % (42-52) Mean Corpuscular Volume 85.2 fL (80-100) Mean Corpuscular Hemoglobin 28.3 pg (25-34) Mean Corpuscular Hemoglobin Concent 33.2 g/dl (32-36) Platelet Count 427 K/uL (130-400) Mean Platelet Volume 11.2 fL (7.4-10.4) Neutrophils (%) (Auto) 79.5 % Lymphocytes (%) (Auto) 12.1 % Monocytes (%) (Auto) 7.4 % Eosinophils (%) (Auto) 0.1 % Basophils (%) (Auto) 0.1 % Neutrophils # (Auto) 13.26 K/uL (1.4-6.5) Lymphocytes # (Auto) 2.02 K/uL (1.2-3.4) Monocytes # (Auto) 1.23 K/uL (0.11-0.59) Eosinophils # (Auto) 0.01 K/uL (0-0.5) Basophils # (Auto) 0.01 K/uL (0-0.2) RDW Standard Deviation 42.7 fL (36.4-46.3) RDW Coefficient of Variation 13.8 % (11.5-14.5) Immature Granulocyte % (Auto) 0.8 % Immature Granulocyte # (Auto) 0.14 K/uL (0.00-0.02) Prothrombin Time 13.0 SECONDS (9.0-12.0) Prothromb Time International Ratio 1.2 (0.9-1.1) Sodium Level 137 mmol/L (136-145) Potassium Level 4.1 mmol/L (3.5-5.1) Chloride Level 102 mmol/L (98-107) Carbon Dioxide Level 27 mmol/L (21-32) Anion Gap 8.0 mmol/L (3-11) Blood Urea Nitrogen 30 mg/dl (7-18) Creatinine 1.10 mg/dl (0.60-1.40) Est Creatinine Clear Calc Drug Dose 42.3 ml/min Estimated GFR () 72.1 Estimated GFR (Non- 62.2 BUN/Creatinine Ratio 26.9 (10-20) Random Glucose 116 mg/dl (70-99) Calcium Level 9.2 mg/dl (8.5-10.1) Total Bilirubin 0.7 mg/dl (0.2-1) Aspartate Amino Transf (AST/SGOT) 51 U/L (15-37) Alanine Aminotransferase (ALT/SGPT) 57 U/L (12-78) Alkaline Phosphatase 226 U/L (45-117) Total Creatine Kinase 99 U/L (39-308) Creatine Kinase MB 1.0 ng/ml (0.5-3.6) Creatine Kinase MB Ratio 1.0 (0-3.0) Troponin I < 0.015 ng/ml (0-0.045) Total Protein 7.3 gm/dl (6.4-8.2) Albumin 2.4 gm/dl (3.4-5.0) Globulin 4.9 gm/dl (2.5-4.0) Albumin/Globulin Ratio 0.5 (0.9-2) Procalcitonin 0.54 ng/ml (0-0.5) Influenza Type A (RT-PCR) Neg for Influ A (NEG) Influenza Type A Antigen Neg for Influ A (NEG) Influenza Type B Antigen Neg for Influ B (NEG) Influenza Type B (RT-PCR) Neg for Influ B (NEG) Urine Color DK YELLOW Urine Appearance CLEAR (CLEAR) Urine pH 5.0 (4.5-7.5) Urine Specific [place] 1.025 (1.000-1.030) Urine Protein TRACE (NEG) Urine Glucose (UA) NEG (NEG) Urine Ketones TRACE (NEG) Urine Occult Blood NEG (NEG) Urine Nitrite NEG (NEG) Urine Bilirubin NEG (NEG) Urine Urobilinogen NEG (NEG) Urine Leukocyte Esterase NEG (NEG) Urine WBC (Auto) 1-5 /hpf (0-5) Urine RBC (Auto) 0-4 /hpf (0-4) Urine Hyaline Casts (Auto) 0 /lpf (0-5) Urine Epithelial Cells (Auto) 5-10 /lpf (0-5) Urine Bacteria (Auto) NEG (NEG) Arterial Blood pH 7.48 (7.35-7.45) Arterial Blood Partial Pressure CO2 31 mmHg (35-46) Arterial Blood Partial Pressure O2 203 mm/Hg (80-95) Arterial Blood HCO3 22 mmol/L (19-24) Arterial Blood Oxygen Saturation 99.6 % (90-95) Arterial Blood Base Excess -0.5 mEq/L (-9-1.8) Arterial Blood Gas Delivery 7L Uriah Test POS (POS) Micro Results: Item Value Date Time Blood Culture Shana Batch 03/23/17 1502 Blood Pending Blood Culture Shana Batch 03/23/17 1502 Blood Pending Recent Pertinent Medications Previously treated with Rocephin and Azithromycin IV for CAP during previous hospital admission. Assessment & Plan ASSESSMENT: * 81 yo M presents from [facility] with respiratory decompensation secondary to possible HCAP * Of note, patient recently admitted/discharged for CVA * Labs show Scr near baseline of ~0.9; WBC elevated; procalcitonin pending * Blood cultures, sputum, MRSA swab pending * Initiate broad spectrum antibiotics and re-evaluate for deescalation tomorrow PLAN: Vancomycin * Loading dose: 1650 mg IV X 1 dose * Continue 1000 mg IV every 16 hours. (with the assumption that Scr will slightly improve by tomorrow) * Goal trough level estimate: between 15 - 20 mcg/mL. * A trough level has been ordered for: @1730 prior to the 1800 dose. Zosyn * No renal adjustment necessary * 3.375 g IV X 1 over 30 minutes * Continue 3.375 g IV every 8 hours Levaquin * Reduced for CrCl 20-49 mL/min * 750 mg IV every 48 hours Pharmacy will continue to follow and will adjust dose/frequency as necessary. Thank you
[2017-03-23] MEDS ORDERED: PIPERACILL/TAZOBAC IV 3.375 GM in DEXTROSE 5% 100ML IV ONE (16:30)
[2017-03-23] MEDS ORDERED: VANCOMYCIN INJ 1,650 MG in SODIUM CHLORIDE 0.9% 500ML 500 ML IV ONE (16:30)
[2017-03-23] MEDS: SODIUM CHLORIDE 0.9% 1000ML 1,000 ML IV SCH (16:36)
[2017-03-23] MEDS ORDERED: PIPERACILL/TAZOBAC CONSULT ACTIVE PRN (17:00)
[2017-03-23] MEDS ORDERED: LEVOFLOXACIN CONSULT ACTIVE PRN (17:00)
[2017-03-23] MEDS ORDERED: VANCOMYCIN CONSULT ACTIVE PRN (17:00)
[2017-03-23] MEDS: LEVOFLOXACIN / D5W 750 MG in PREMIXED IN D5W 150 ML IV SCH (17:36)
[2017-03-23] MEDS: PIPERACILL/TAZOBAC IV 3.375 GM in DEXTROSE 5% 100ML 100 ML IV SCH (22:29)
[2017-03-23] MEDS: HEPARIN SOD 5000 UNIT/0.5 ML CARP SQ SCH (22:30)
[2017-03-24] VITALS (14 sets, daily range): BP systolic 120–160; BP diastolic 71–97; PULSE 76–105; TEMP 36.3–36.9; O2SAT 91–98
[2017-03-24] MEDS: SODIUM CHLORIDE 0.9% 1000ML 1,000 ML IV SCH ×2 (05:06→20:02)
[2017-03-24] MEDS: PIPERACILL/TAZOBAC IV 3.375 GM in DEXTROSE 5% 100ML 100 ML IV SCH ×3 (05:37→21:32)
[2017-03-24] MEDS: HEPARIN SOD 5000 UNIT/0.5 ML CARP SQ SCH ×3 (05:40→21:36)
[2017-03-24 07:10] LABS: BASO % 0.1 %; BASO ABS # 0.01 K/uL (0-0.2); COMPLETE YES; HEMATOCRIT 35.1 % (42-52); LYMPH % 5.3 %; MEAN CORPUSCULAR HEMOGLOBIN 29.4 pg (25-34); MEAN CORPUSCULAR HGB CONC 34.2 g/dl (32-36); MEAN PLATELET VOLUME 10.6 fL (7.4-10.4); MONO % 8.9 %; NEUT % 84.7 %; PLATELET COUNT 342 K/uL (130-400); RED BLOOD COUNT 4.08 M/uL (4.7-6.1); WHITE BLOOD COUNT 18.89 K/uL (4.8-10.8)
[2017-03-24] MEDS: ALBUT/IPRATROP 3MG/0.5MG NEB 3 ML VIAL INH SCH ×4 (07:17→19:43)
[2017-03-24 07:45] LABS: BUN/CREATININE RATIO 28.4 (10-20); CALCIUM 8.9 mg/dl (8.5-10.1); CREATININE 0.99 mg/dl (0.60-1.40); POTASSIUM 4.2 mmol/L (3.5-5.1)
[2017-03-24] MEDS: ATORVASTATIN 40 MG TAB PO SCH (09:25)
[2017-03-24] MEDS: CLOPIDOGREL BISULFATE 75 MG TAB PO SCH (09:25)
--- NOTE | 2017-03-24 09:27 | Clinical Documentation Query ---
Dr. HEIDI KILGORE, [facility] : CLINICAL DOCUMENTATION QUERY Patient is an 81 year old male admitted for evaluation and treatment of acute hypoxic respiratory failure likely secondary to HCAP. Treatment includes Zosyn, Levaquin, and Vancomycin at this time. Please explicitly state the possible subtypes of pneumonia in which you are treating (as based upon antibiotic selection) as this directly impacts DRG assignment. Thank you. In your clinical opinion is this patient being managed for: ( ) (Possible) Gram-negative and/or MRSA pneumonia ( ) Other explanation of clinical findings (Please Explain) ( x ) Unable to determine (Please Define) ( ) Need to Discuss ( ) Not Agree The medical record reflects the following clinical findings, treatment, and risk factors. Clinical Indicators: As above Treatment:Treatment includes Zosyn, Levaquin, and Vancomycin at this time, telemetry, labs, CT Chest, incentive spirometry, ABG Risk Factors: Recent hospitalization, recent antibiotic usage, age Please clarify and document your clinical opinion in the progress notes and discharge summary. Terms such as "probable", "suspected", "likely", "questionable", "possible", or "still to be ruled out" are acceptable. IF IN AGREEMENT, YOU MUST DOCUMENT ABOVE DIAGNOSTIC STATEMENT IN DAILY PROGRESS NOTES AND DISCHARGE SUMMARY. This document is not part of the patient's record. Thank You, Daren Hutchinson, RN [phone]
[2017-03-24] MEDS ORDERED: VANCOMYCIN INJ 1,000 MG in SODIUM CHLORIDE 0.9% 250ML 250 ML IV SCH (10:00)
--- NOTE | 2017-03-24 11:46 | DIAGNOSTIC IMAGING REPORT ---
CHEST ONE VIEW PORTABLE CLINICAL HISTORY: Shortness of breath. Hypoxia. COMPARISON STUDY: Chest radiograph and chest CT March 23, 2017. FINDINGS: As before, lung volumes are diminished. There is no pneumothorax or pleural effusion. There is no evidence of pulmonary edema. Cardiomediastinal silhouette is stable. Bibasilar opacities are unchanged. IMPRESSION: No significant change in bibasilar opacities. Atelectasis is favored over pneumonia. Electronically signed by: Jeremy Mercado M.D. 03/24/2017 11:45 AM Dictated Date/Time: 03/24/2017 11:44 AM
[2017-03-24] MEDS: LACTOBACILLUS ACIDOPHILUS 1 GM PACK PO SCH ×2 (12:06→17:15)
[2017-03-24] MEDS: FUROSEMIDE INJ 20 MG in SYRINGE 0 ML IV SCH (21:33)
[2017-03-25] VITALS (11 sets, daily range): BP systolic 112–156; BP diastolic 76–90; PULSE 68–124; TEMP 36.7–37.5; O2SAT 86–97
[2017-03-25] MEDS: PIPERACILL/TAZOBAC IV 3.375 GM in DEXTROSE 5% 100ML 100 ML IV SCH ×3 (04:54→22:09)
[2017-03-25] MEDS: HEPARIN SOD 5000 UNIT/0.5 ML CARP SQ SCH ×3 (05:00→20:52)
[2017-03-25] MEDS: ALBUT/IPRATROP 3MG/0.5MG NEB 3 ML VIAL INH SCH ×4 (06:57→19:55)
[2017-03-25 07:05] LABS: BASO % 0.2 %; BASO ABS # 0.03 K/uL (0-0.2); COMPLETE YES; EOS % 0.5 %; IG% 2.1 %; LYMPH % 9.2 %; LYMPH ABS # 1.34 K/uL (1.2-3.4); MEAN CELL VOLUME 85.6 fL (80-100); MEAN CORPUSCULAR HEMOGLOBIN 29.2 pg (25-34); MEAN CORPUSCULAR HGB CONC 34.1 g/dl (32-36); MEAN PLATELET VOLUME 10.2 fL (7.4-10.4); PLATELET COUNT 415 K/uL (130-400); RED BLOOD COUNT 4.32 M/uL (4.7-6.1); WHITE BLOOD COUNT 14.58 K/uL (4.8-10.8)
[2017-03-25] MEDS: SODIUM CHLORIDE 0.9% 1000ML 1,000 ML IV SCH (07:15)
[2017-03-25 07:33] LABS: CALCIUM 8.6 mg/dl (8.5-10.1); CREATININE 1.2 mg/dl (0.60-1.40); MAGNESIUM 2.4 mg/dl (1.8-2.4); POTASSIUM 3.9 mmol/L (3.5-5.1)
[2017-03-25 07:36] LABS: ALB/GLOB RATIO 0.5 (0.9-2); PHOSPHORUS 2.9 mg/dl (2.5-4.9)
[2017-03-25] MEDS: LACTOBACILLUS ACIDOPHILUS 1 GM PACK PO SCH ×3 (07:42→16:51)
[2017-03-25] MEDS: FUROSEMIDE INJ 20 MG in SYRINGE 0 ML IV SCH ×2 (08:23→20:40)
[2017-03-25] MEDS: CLOPIDOGREL BISULFATE 75 MG TAB PO SCH (08:23)
[2017-03-25] MEDS: ATORVASTATIN 40 MG TAB PO SCH (08:23)
[2017-03-25 12:23] LABS: LEGIONELLA ANTIGEN NOT DETECTED (NOT DETECTED)
--- NOTE | 2017-03-25 15:49 | Progress Note ---
Subjective Date of Service: March 24, 2017. Subjective Pt evaluation today including: conversation w/ patient, conversation w/ family , physical exam, chart review, lab review, review of studies, review of inpatient medication list Review of Systems Constitutional: No chills, No fatigue, No fever, No problem reported, No see HPI, No sweats, No weakness, No weight loss Eyes: No diplopia, No discharge, No eye pain, No problem reported, No redness, No see HPI, No worsening of vision ENT: No dental problems, No hearing loss, No nasal symptoms, No problem reported, No see HPI, No sore throat, No tinnitus, No trouble swallowing, No unusual epistaxis Respiratory: + shortness of breath, No cough, No dyspnea at rest, No dyspnea on exertion, No hemoptysis, No problem reported, No see HPI, No sputum, No wheezing Cardiac: No PND, No chest pain, No claudication, No edema, No orthopnea, No palpitations, No problem reported, No see HPI Abdomen: No GI bleeding, No constipation, No diarrhea, No nausea, No pain, No problem reported, No see HPI, No vomiting Musculoskeletal: No calf pain, No joint pain, No muscle pain, No problem reported, No see HPI, No swelling Male : + problem reported (chronic retention , straight cath at home), No dysuria, No hematuria, No incontinence, No nocturia more than once/night, No see HPI, No sexual dysfunction, No slowing stream, No urinary frequency Neurologic: No balance problems, No memory loss, No numbness/tingling, No paralysis, No problem reported, No see HPI, No vertigo, No weakness Psychiatric: No anhedonism, No anxiety, No depression symptoms, No insomnia, No problem reported, No see HPI, No substance abuse Heme: No abnormal bleeding/bruising, No clotting problems, No night sweats, No problem reported, No see HPI, No swollen lymph nodes Endo: No excessive thirst, No excessive urination, No fatigue, No problem reported, No see HPI Skin: No bleeding, No color change, No itch, No new/changing skin lesions, No problem reported, No rash, No see HPI Medications Current Inpatient Medications Medications (Trade) Dose Ordered Sig/Geremias Route Start Time Stop Time Status Last Admin Dose Admin Ioversol (Optiray 320) 111 ml UD PRN IV 03/23/17 13:15 5/11/17 13:14 Heparin Sodium (Porcine) (Heparin Sq 5000 Unit/0.5ml) 5,000 unit Q8 SQ 03/23/17 22:00 04/22/17 21:59 03/24/17 05:40 5,000 UNIT Acetaminophen (Tylenol Tab) 650 mg Q4H PRN PO 03/23/17 15:00 04/22/17 14:59 Al Hydrox/Mg Hydrox/Simethicone (Maalox Max Susp) 15 ml Q4H PRN PO 03/23/17 15:00 04/22/17 14:59 Ondansetron HCl 4 mg 4 mg Q6H PRN IV 03/23/17 15:00 04/22/17 14:59 Piperacillin Sod/ Tazobactam Sod 3.375 gm/Dextrose 115 ml @ 28.75 mls/ hr Q8H IV 03/23/17 22:00 03/30/17 21:59 03/24/17 05:37 28.75 MLS/HR Levofloxacin 750 mg/Prmx 150 ml @ 100 mls/hr Q48H IV 03/23/17 18:00 03/30/17 17:59 03/23/17 17:36 100 MLS/HR Vancomycin HCl/ Sodium Chloride (Vancomycin Inj/ Nss 250ml) 270 ml @ 125 mls/hr Q16H IV 03/24/17 10:00 03/31/17 09:59 03/24/17 09:26 125 MLS/HR Atorvastatin Calcium (Lipitor Tab) 80 mg QAM PO 03/24/17 09:00 04/23/17 08:59 03/24/17 09:25 80 MG Clopidogrel Bisulfate 75 mg 75 mg QAM PO 03/24/17 09:00 04/23/17 08:59 03/24/17 09:25 75 MG Sodium Chloride (Nss 1000ml) 1,000 ml @ 75 mls/hr [id number] IV 03/23/17 15:15 04/22/17 15:14 03/24/17 05:06 75 MLS/HR Albuterol/ Ipratropium (Duoneb) 3 ml QIDR INH 03/23/17 16:00 04/22/17 15:59 03/24/17 07:17 3 ML Vancomycin HCl (Consult) 1 ea UD PRN N/A 03/23/17 17:00 04/22/17 16:59 Levofloxacin (Consult) 1 ea UD PRN N/A 03/23/17 17:00 04/22/17 16:59 Piperacillin Sod/ Tazobactam Sod (Consult) 1 ea UD PRN N/A 03/23/17 17:00 04/22/17 16:59 Objective Vital Signs Date Time Temp Pulse Resp B/P Pulse Ox O2 Delivery O2 Flow Rate FiO2 03/24/17 08:07 Nasal Cannula 5.0 03/24/17 07:33 36.3 84 22 148/86 98 BiPAP 03/24/17 07:19 79 20 98 BiPAP/CPAP 03/24/17 04:00 BiPAP 60 03/24/17 03:50 36.5 91 24 160/97 98 BiPAP 60 03/24/17 00:00 BiPAP 60 03/23/17 23:01 36.6 99 24 135/83 98 BiPAP 60 03/23/17 21:05 94 98 80 03/23/17 20:32 36.7 119 20 141/85 90 Nasal Cannula 6.0 03/23/17 20:00 BiPAP 80 03/23/17 19:34 115 20 83 Nasal Cannula 4.0 03/23/17 16:19 98 Non-Rebreather 15.0 03/23/17 15:14 112 20 159/101 97 BiPAP 03/23/17 13:41 104 20 176/98 100 BiPAP 03/23/17 13:13 117 93 80 03/23/17 13:12 117 22 93 BiPAP/CPAP 80 03/23/17 12:45 87 Room Air 03/23/17 12:30 112 28 159/99 88 Non-Rebreather 10.0 03/23/17 12:26 108 03/23/17 12:15 108 165/108 91 Non-Rebreather 10.0 03/23/17 11:48 Room Air 87 03/23/17 11:48 36.8 112 29 154/107 87 Room Air 03/23/17 11:38 87 Room Air Physical Exam General Appearance: WD/WN, no apparent distress Eyes: normal inspection, PERRL, EOMI ENT: normal ENT inspection, hearing grossly normal, pharynx normal Neck: supple Respiratory/Chest: chest non-tender, no respiratory distress, no accessory muscle use, + decreased breath sounds, + crackles Cardiovascular: regular rate, rhythm, no edema, no gallop, no JVD, no murmur Abdomen: normal bowel sounds, non tender, soft, no organomegaly Extremities: normal range of motion, non-tender, normal inspection, no pedal edema Neurologic/Psychiatric: poker manager II-XII nml as tested, no motor/sensory deficits, alert, normal mood/affect, oriented x 3 Skin: normal color, warm/dry, no rash Laboratory Results Last 24 Hours Test 03/23/17 11:20 03/23/17 13:18 03/23/17 14:13 03/23/17 14:45 White Blood Count 16.67 K/uL Red Blood Count 4.74 M/uL Hemoglobin 13.4 g/dL Hematocrit 40.4 % Mean Corpuscular Volume 85.2 fL Mean Corpuscular Hemoglobin 28.3 pg Mean Corpuscular Hemoglobin Concent 33.2 g/dl Platelet Count 427 K/uL Mean Platelet Volume 11.2 fL Neutrophils (%) (Auto) 79.5 % Lymphocytes (%) (Auto) 12.1 % Monocytes (%) (Auto) 7.4 % Eosinophils (%) (Auto) 0.1 % Basophils (%) (Auto) 0.1 % Neutrophils # (Auto) 13.26 K/uL Lymphocytes # (Auto) 2.02 K/uL Monocytes # (Auto) 1.23 K/uL Eosinophils # (Auto) 0.01 K/uL Basophils # (Auto) 0.01 K/uL RDW Standard Deviation 42.7 fL RDW Coefficient of Variation 13.8 % Immature Granulocyte % (Auto) 0.8 % Immature Granulocyte # (Auto) 0.14 K/uL Prothrombin Time 13.0 SECONDS Prothromb Time International Ratio 1.2 Sodium Level 137 mmol/L Potassium Level 4.1 mmol/L Chloride Level 102 mmol/L Carbon Dioxide Level 27 mmol/L Anion Gap 8.0 mmol/L Blood Urea Nitrogen 30 mg/dl Creatinine 1.10 mg/dl Est Creatinine Clear Calc Drug Dose 42.3 ml/min Estimated GFR () 72.1 Estimated GFR (Non- 62.2 BUN/Creatinine Ratio 26.9 Random Glucose 116 mg/dl Calcium Level 9.2 mg/dl Total Bilirubin 0.7 mg/dl Aspartate Amino Transf (AST/SGOT) 51 U/L Alanine Aminotransferase (ALT/SGPT) 57 U/L Alkaline Phosphatase 226 U/L Total Creatine Kinase 99 U/L Creatine Kinase MB 1.0 ng/ml Creatine Kinase MB Ratio 1.0 Troponin I < 0.015 ng/ml Total Protein 7.3 gm/dl Albumin 2.4 gm/dl Globulin 4.9 gm/dl Albumin/Globulin Ratio 0.5 Procalcitonin 0.54 ng/ml Influenza Type A (RT-PCR) Neg for Influ A Influenza Type A Antigen Neg for Influ A Influenza Type B Antigen Neg for Influ B Influenza Type B (RT-PCR) Neg for Influ B Urine Color DK YELLOW Urine Appearance CLEAR Urine pH 5.0 Urine Specific [place] 1.025 Urine Protein TRACE Urine Glucose (UA) NEG Urine Ketones TRACE Urine Occult Blood NEG Urine Nitrite NEG Urine Bilirubin NEG Urine Urobilinogen NEG Urine Leukocyte Esterase NEG Urine WBC (Auto) 1-5 /hpf Urine RBC (Auto) 0-4 /hpf Urine Hyaline Casts (Auto) 0 /lpf Urine Epithelial Cells (Auto) 5-10 /lpf Urine Bacteria (Auto) NEG Arterial Blood pH 7.48 Arterial Blood Partial Pressure CO2 31 mmHg Arterial Blood Partial Pressure O2 203 mm/Hg Arterial Blood HCO3 22 mmol/L Arterial Blood Oxygen Saturation 99.6 % Arterial Blood Base Excess -0.5 mEq/L Arterial Blood Gas Delivery 7L Uriah Test POS Test 03/24/17 06:40 White Blood Count 18.89 K/uL Red Blood Count 4.08 M/uL Hemoglobin 12.0 g/dL Hematocrit 35.1 % Mean Corpuscular Volume 86.0 fL Mean Corpuscular Hemoglobin 29.4 pg Mean Corpuscular Hemoglobin Concent 34.2 g/dl Platelet Count 342 K/uL Mean Platelet Volume 10.6 fL Neutrophils (%) (Auto) 84.7 % Lymphocytes (%) (Auto) 5.3 % Monocytes (%) (Auto) 8.9 % Eosinophils (%) (Auto) 0.0 % Basophils (%) (Auto) 0.1 % Neutrophils # (Auto) 16.02 K/uL Lymphocytes # (Auto) 1.00 K/uL Monocytes # (Auto) 1.68 K/uL Eosinophils # (Auto) 0.00 K/uL Basophils # (Auto) 0.01 K/uL RDW Standard Deviation 44.2 fL RDW Coefficient of Variation 14.1 % Immature Granulocyte % (Auto) 1.0 % Immature Granulocyte # (Auto) 0.18 K/uL Sodium Level 138 mmol/L Potassium Level 4.2 mmol/L Chloride Level 105 mmol/L Carbon Dioxide Level 25 mmol/L Anion Gap 8.0 mmol/L Blood Urea Nitrogen 28 mg/dl Creatinine 0.99 mg/dl Est Creatinine Clear Calc Drug Dose 48.2 ml/min Estimated GFR () 81.9 Estimated GFR (Non- 70.6 BUN/Creatinine Ratio 28.4 Random Glucose 119 mg/dl Calcium Level 8.9 mg/dl Assessment and Plan 81 yo male with hx of CKD stage 3, recent occipital stroke just 2 days ago and recent treatment for CAP w CTXN/azithro X 4 days who was brought from [facility] with pulse ox of 85% CXR and CTA performed with 2 cm upper pulm nodules and bibasilar opacities. Acute hypoxic resp failure can not clinically determined if the underlying cause is pneumonia improved fairly quickly for it to be pneumonia no consolidation on CTA Leukocytosis could be secondary to steroids or atelectasis DC vanco order urine legionellla/strept continue zosyn/levofloxacin add lactinex I suspect acute diastolic CHF , added lasix 20mg IV BID and I&Os repet CXR today Recent occipital stroke - Cont atorvastatin and plavix. confusion resolved 2mm left upper lobe nodule, very small in size, Cont to monitor CKD stage III, tachycardia noted, hold IVF ( can give only KVO ) Deep venous thrombosis prophylaxis with heparin Dyslipidemia Continue his Lipitor. case D/W daughter and patient in length will DC kay and start straight cathing again
--- NOTE | 2017-03-25 15:56 | Progress Note ---
Subjective Date of Service: March 25, 2017. Subjective Pt evaluation today including: conversation w/ patient, conversation w/ family , physical exam, chart review, lab review, review of inpatient medication list Review of Systems Constitutional: No chills, No fatigue, No fever, No problem reported, No see HPI, No sweats, No weakness, No weight loss Eyes: No diplopia, No discharge, No eye pain, No problem reported, No redness, No see HPI, No worsening of vision ENT: No dental problems, No hearing loss, No nasal symptoms, No problem reported, No see HPI, No sore throat, No tinnitus, No trouble swallowing, No unusual epistaxis Respiratory: No cough, No dyspnea at rest, No dyspnea on exertion, No hemoptysis, No problem reported, No see HPI, No shortness of breath, No sputum, No wheezing Cardiac: No PND, No chest pain, No claudication, No edema, No orthopnea, No palpitations, No problem reported, No see HPI Abdomen: No GI bleeding, No constipation, No diarrhea, No nausea, No pain, No problem reported, No see HPI, No vomiting Musculoskeletal: No calf pain, No joint pain, No muscle pain, No problem reported, No see HPI, No swelling Male : No dysuria, No hematuria, No incontinence, No nocturia more than once/ night, No problem reported, No see HPI, No sexual dysfunction, No slowing stream , No urinary frequency Neurologic: No balance problems, No memory loss, No numbness/tingling, No paralysis, No problem reported, No see HPI, No vertigo, No weakness Psychiatric: No anhedonism, No anxiety, No depression symptoms, No insomnia, No problem reported, No see HPI, No substance abuse Heme: No abnormal bleeding/bruising, No clotting problems, No night sweats, No problem reported, No see HPI, No swollen lymph nodes Endo: No excessive thirst, No excessive urination, No fatigue, No problem reported, No see HPI Skin: No bleeding, No color change, No itch, No new/changing skin lesions, No problem reported, No rash, No see HPI Medications Current Inpatient Medications Medications (Trade) Dose Ordered Sig/Geremias Route Start Time Stop Time Status Last Admin Dose Admin Ioversol (Optiray 320) 111 ml UD PRN IV 03/23/17 13:15 03/27/17 13:14 Heparin Sodium (Porcine) (Heparin Sq 5000 Unit/0.5ml) 5,000 unit Q8 SQ 03/23/17 22:00 04/22/17 21:59 03/25/17 14:00 5,000 UNIT Acetaminophen (Tylenol Tab) 650 mg Q4H PRN PO 03/23/17 15:00 04/22/17 14:59 Al Hydrox/Mg Hydrox/Simethicone (Maalox Max Susp) 15 ml Q4H PRN PO 03/23/17 15:00 04/22/17 14:59 03/24/17 21:35 15 ML Ondansetron HCl 4 mg 4 mg Q6H PRN IV 03/23/17 15:00 04/22/17 14:59 Piperacillin Sod/ Tazobactam Sod 3.375 gm/Dextrose 115 ml @ 28.75 mls/ hr Q8H IV 03/23/17 22:00 03/30/17 21:59 03/25/17 13:05 28.75 MLS/HR Levofloxacin/Prmx (Levaquin / D5W/ Premixed D5W) 150 ml @ 100 mls/hr Q48H IV 03/23/17 18:00 03/30/17 17:59 03/23/17 17:36 100 MLS/HR Atorvastatin Calcium (Lipitor Tab) 80 mg QAM PO 03/24/17 09:00 04/23/17 08:59 03/25/17 08:23 80 MG Clopidogrel Bisulfate 75 mg 75 mg QAM PO 03/24/17 09:00 04/23/17 08:59 03/25/17 08:23 75 MG Sodium Chloride (Nss 1000ml) 1,000 ml @ 75 mls/hr [id number] IV 03/23/17 15:15 04/22/17 15:14 03/25/17 07:15 75 MLS/HR Albuterol/ Ipratropium (Duoneb) 3 ml QIDR INH 03/23/17 16:00 04/22/17 15:59 03/25/17 14:41 3 ML Levofloxacin (Consult) 1 ea UD PRN N/A 03/23/17 17:00 04/22/17 16:59 Piperacillin Sod/ Tazobactam Sod (Consult) 1 ea UD PRN N/A 03/23/17 17:00 04/22/17 16:59 Lactobacillus Acidophilus 1 gm 1 gm TIDM PO 03/24/17 11:30 04/23/17 11:29 03/25/17 11:30 1 GM Furosemide/Syringe (Lasix Inj/ Syringe) 2 ml @ 4 mls/min Q12 IV 03/24/17 21:00 04/23/17 20:59 03/25/17 08:23 4 MLS/MIN Objective Vital Signs Date Time Temp Pulse Resp B/P Pulse Ox O2 Delivery O2 Flow Rate FiO2 03/25/17 14:42 114 16 91 Nasal Cannula 4.0 03/25/17 11:45 91 Nasal Cannula 4.0 03/25/17 11:44 36.8 116 20 128/87 91 2.5 03/25/17 11:21 92 16 86 Nasal Cannula 2.5 03/25/17 08:00 Nasal Cannula 3.0 03/25/17 07:32 36.7 111 18 143/90 90 2.0 03/25/17 06:57 92 16 94 Nasal Cannula 2.0 03/25/17 04:21 37.1 68 17 156/84 97 Room Air 2.0 03/25/17 04:00 97 Nasal Cannula 3.0 03/24/17 23:59 97 Nasal Cannula 3.0 03/24/17 23:44 36.7 94 18 148/84 92 Nasal Cannula 2.0 03/24/17 20:10 36.9 105 16 128/78 94 Nasal Cannula 3.0 03/24/17 20:00 97 Nasal Cannula 3.0 03/24/17 19:43 105 16 97 Nasal Cannula 4.0 03/24/17 16:20 92 Nasal Cannula 4.0 03/24/17 16:00 76 20 93 Nasal Cannula 4.0 Physical Exam General Appearance: WD/WN, no apparent distress Eyes: normal inspection, EOMI ENT: normal ENT inspection, hearing grossly normal, TMs normal Neck: supple Respiratory/Chest: chest non-tender, + decreased breath sounds, + accessory muscle use, + crackles Cardiovascular: regular rate, rhythm, no edema, no gallop, no murmur Abdomen: normal bowel sounds, non tender, soft, no organomegaly Extremities: normal range of motion, non-tender, normal inspection, no pedal edema 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, no motor/sensory deficits, alert, normal mood/affect, oriented x 3 Skin: normal color, warm/dry, no rash Laboratory Results Last 24 Hours Test 03/25/17 06:50 03/25/17 15:39 White Blood Count 14.58 K/uL Red Blood Count 4.32 M/uL Hemoglobin 12.6 g/dL Hematocrit 37.0 % Mean Corpuscular Volume 85.6 fL Mean Corpuscular Hemoglobin 29.2 pg Mean Corpuscular Hemoglobin Concent 34.1 g/dl Platelet Count 415 K/uL Mean Platelet Volume 10.2 fL Neutrophils (%) (Auto) 77.0 % Lymphocytes (%) (Auto) 9.2 % Monocytes (%) (Auto) 11.0 % Eosinophils (%) (Auto) 0.5 % Basophils (%) (Auto) 0.2 % Neutrophils # (Auto) 11.23 K/uL Lymphocytes # (Auto) 1.34 K/uL Monocytes # (Auto) 1.60 K/uL Eosinophils # (Auto) 0.08 K/uL Basophils # (Auto) 0.03 K/uL RDW Standard Deviation 44.2 fL RDW Coefficient of Variation 14.1 % Immature Granulocyte % (Auto) 2.1 % Immature Granulocyte # (Auto) 0.30 K/uL Sodium Level 139 mmol/L Potassium Level 3.9 mmol/L Chloride Level 103 mmol/L Carbon Dioxide Level 28 mmol/L Anion Gap 8.0 mmol/L Blood Urea Nitrogen 30 mg/dl Creatinine 1.20 mg/dl Est Creatinine Clear Calc Drug Dose 39.7 ml/min Estimated GFR () 64.9 Estimated GFR (Non- 56.0 BUN/Creatinine Ratio 25.0 Random Glucose 97 mg/dl Calcium Level 8.6 mg/dl Phosphorus Level 2.9 mg/dl Magnesium Level 2.4 mg/dl Total Bilirubin 0.5 mg/dl Aspartate Amino Transf (AST/SGOT) 116 U/L Alanine Aminotransferase (ALT/SGPT) 119 U/L Alkaline Phosphatase 216 U/L Total Protein 6.6 gm/dl Albumin 2.1 gm/dl Globulin 4.5 gm/dl Albumin/Globulin Ratio 0.5 Assessment and Plan 81 yo male with hx of CKD stage 3, recent occipital stroke just 2 days ago and recent treatment for CAP w CTXN/azithro X 4 days who was brought from [facility] with pulse ox of 85% CXR and CTA performed with 2 cm upper pulm nodules and bibasilar opacities. Acute hypoxic resp failure still can not clinically determined if the underlying cause is pneumonia improved fairly quickly for it to be pneumonia no consolidation on CTA, repeat CXR showed atelectasis and increased broncho- alveolar markings Leukocytosis could be secondary to steroids or atelectasis yesterday DCed vanco follow up urine legionellla/strept continue zosyn/levofloxacin for another day and re evaluate tomorrow add lactinex acute on chronic diastolic CHF , continue lasix 20mg IV BID and I&Os DC IVF decrease lipitor to 40mg po daily (his home dose) Increased creatinine to 1.2 follow up this after noon and in am Recent occipital stroke - Cont atorvastatin and plavix. confusion resolved 2mm left upper lobe nodule, very small in size, Cont to monitor CKD stage III, tachycardia noted, hold IVF ( can give only KVO ) Deep venous thrombosis prophylaxis with heparin Dyslipidemia Continue his Lipitor. case D/W daughter and patient in length
[2017-03-25 16:09] LABS: BUN/CREATININE RATIO 26.4 (10-20); CALCIUM 8.9 mg/dl (8.5-10.1); CREATININE 1.2 mg/dl (0.60-1.40)
[2017-03-25] MEDS: LEVOFLOXACIN / D5W 750 MG in PREMIXED IN D5W 150 ML IV SCH (16:53)
[2017-03-25] MEDS ORDERED: VANCOMYCIN TROUGH SCH (17:30)
[2017-03-26] VITALS (8 sets, daily range): BP systolic 104–115; BP diastolic 63–78; PULSE 101–119; TEMP 36.3–36.9; O2SAT 91–95
[2017-03-26] MEDS: HEPARIN SOD 5000 UNIT/0.5 ML CARP SQ SCH ×2 (05:35→13:15)
[2017-03-26] MEDS: PIPERACILL/TAZOBAC IV 3.375 GM in DEXTROSE 5% 100ML 100 ML IV SCH ×2 (05:36→13:06)
[2017-03-26 07:23] LABS: BASO % 0.1 %; BASO ABS # 0.01 K/uL (0-0.2); COMPLETE YES; EOS % 0.4 %; HEMATOCRIT 38.6 % (42-52); IG% 1.7 %; LYMPH % 8.2 %; LYMPH ABS # 1.17 K/uL (1.2-3.4); MEAN CELL VOLUME 84.6 fL (80-100); MEAN CORPUSCULAR HEMOGLOBIN 27.6 pg (25-34); MEAN CORPUSCULAR HGB CONC 32.6 g/dl (32-36); MEAN PLATELET VOLUME 9.8 fL (7.4-10.4); MONO % 13.6 %; PLATELET COUNT 447 K/uL (130-400); RED BLOOD COUNT 4.56 M/uL (4.7-6.1)
[2017-03-26] MEDS: ALBUT/IPRATROP 3MG/0.5MG NEB 3 ML VIAL INH SCH (07:23)
[2017-03-26] MEDS: LACTOBACILLUS ACIDOPHILUS 1 GM PACK PO SCH ×2 (07:43→12:14)
[2017-03-26] MEDS: CLOPIDOGREL BISULFATE 75 MG TAB PO SCH (07:43)
[2017-03-26 08:00] LABS: BUN/CREATININE RATIO 22.8 (10-20); CALCIUM 9.1 mg/dl (8.5-10.1); CREATININE 1.3 mg/dl (0.60-1.40); MAGNESIUM 2.7 mg/dl (1.8-2.4)
[2017-03-26 08:03] LABS: ALB/GLOB RATIO 0.4 (0.9-2); PHOSPHORUS 3.3 mg/dl (2.5-4.9)
[2017-03-26] MEDS: FUROSEMIDE INJ 20 MG in SYRINGE 0 ML IV SCH (09:32)
[2017-03-26] MEDS ORDERED: LCTXP PO (09:32)
[2017-03-26] MEDS ORDERED: LEVO-18 PO (09:32)
--- NOTE | 2017-03-26 09:38 | Discharge Instructions ---
Discharge Instructions Admission Admission Date: March 23, 2017 at 14:51 Admission Diagnosis: Cva, Hypoxia. Care Plan - Goal(s): Decrease discomfort Care Plan - Instructions: Activity Recommendations: no limitations Recommended Home Diet: 1800 [address] Wt Reduction, Regular VTE Core Measure Inpt VTE Proph given/why not?: Enoxaparin (Lovenox)SQ Laboratory Results Test Results: Hemoglobin A1c Test 03/21/17 05:46 Range/Units Estimated Average Glucose 120 mg/dl Hemoglobin A1c 5.8 H 4.5-5.6 % Lipid Panel Test 03/22/17 07:02 Range/Units Triglycerides Level 84 0-150 mg/dl Cholesterol Level 129 0-200 mg/dl HDL Cholesterol 28 mg/dl Cholesterol/HDL Ratio 4.6 LDL Cholesterol, Calculated 84 mg/dl Niki Wesley Recommendations: Call your doctor if: * Temperature above 101 degrees * Pain not relieved by pain medicine ordered * There is increased drainage or redness from any incision * You have any unanswered questions or concerns. Your Doctors Instructions noted above were prepared by provider Arcenio Caro.
[2017-03-26] MEDS ORDERED: FURO40TA3 PO (09:44)
--- NOTE | 2017-03-26 09:52 | Discharge Summary ---
Discharge Summary Date of Service March 26, 2017. Discharge Summary Admission Date: March 23, 2017 at 14:51 Discharge Date: March 26, 2017 Discharge Disposition: Home Principal Diagnosis: acute hypoxic respiratory failure Problems/Secondary Diagnoses: Recent occipital stroke CKD stage III Dyslipidemia Continue his Lipitor. Immunizations: Pneumococcal Date: Feb 20, 2015 Medication Reconciliation New Medications: Furosemide (Lasix) 40 Mg Tab 10 MG PO DAILY for 30 Days, TAB Levofloxacin (Levaquin) 750 Mg Tab 1 TAB PO Q48H for 4 Days, #2 TAB start tomorrow 03/27 Lactobacillus Acidophilus (Lactinex Granules) 1 Gm Pack 1 GM PO TIDM for 14 Days, #52 Continued Medications: Acetaminophen (Tylenol) 500 Mg Tab 500 MG PO Q4 PRN for Pain or Fever, TAB MAX 3 GM APAP/24HR Atorvastatin (Atorvastatin Calcium) 40 Mg Tab 80 MG PO QAM for 30 Days, TAB Clopidogrel Bisulfate (Clopidogrel) 75 Mg Tab 75 MG PO QAM, #30 TAB Polyethylene Glycol 3350 (Miralax) 1 Pow Pow 17 GM PO DAILY PRN for Constipation, #255 GM Senna/Docusate Sod (Senokot S) 1 Tab Tab 1 TAB PO QD, TAB AT NOON Discontinued Medications: Docusate Sodium (Docusate Sodium) 100 Mg Cap 1 CAP PO BID for 7 Days, #14 CAP Discharge Exam Review of Systems: Constitutional: No chills, No fatigue, No fever, No problem reported, No sweats, No weakness, No weight loss Eyes: No diplopia, No discharge, No eye pain, No problem reported, No redness, No worsening of vision ENT: No dental problems, No hearing loss, No nasal symptoms, No problem reported, No sore throat, No tinnitus, No trouble swallowing, No unusual epistaxis Respiratory: No cough, No dyspnea at rest, No dyspnea on exertion, No hemoptysis, No problem reported, No shortness of breath, No sputum, No wheezing Cardiovascular: No PND, No chest pain, No claudication, No edema, No orthopnea, No palpitations, No problem reported Abdomen: No GI bleeding, No constipation, No diarrhea, No nausea, No pain, No problem reported, No vomiting Musculoskeletal: No calf pain, No joint pain, No muscle pain, No problem reported, No swelling Genitourinary - Male: No dysuria, No hematuria, No impotence, No lesions, No penile discharge, No problem reported, No urinary frequency, No urinary hesitancy, No urinary incontinence, No urinary retention, No urinary urgency Neurologic: No balance problems, No memory loss, No numbness/tingling, No paralysis, No problem reported, No vertigo, No weakness Psychiatric: No anhedonism, No anxiety, No depression symptoms, No insomnia , No problem reported, No substance abuse Endocrine: No excessive thirst, No excessive urination, No fatigue, No problem reported Hematologic / Lymphatic: No abnormal bleeding/bruising, No clotting problems , No night sweats, No problem reported, No swollen lymph nodes Integumentary: No bleeding, No color change, No itch, No new/changing skin lesions, No problem reported, No rash Physical Exam: General Appearance: WD/WN, no apparent distress Eyes: normal inspection, EOMI ENT: normal ENT inspection, hearing grossly normal Neck: supple Respiratory/Chest: chest non-tender, lungs clear, normal breath sounds, no respiratory distress, no accessory muscle use Cardiovascular: regular rate, rhythm, no edema, no gallop, no JVD, no murmur Abdomen / GI: normal bowel sounds, non tender, soft, no organomegaly, no pulsatile mass, normal rectal exam Extremities: normal inspection, no calf tenderness, normal capillary refill , no pedal edema 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 Acute hypoxic resp failure still can not clinically determined if the underlying cause is pneumonia improved fairly quickly for it to be pneumonia no consolidation on CTA, repeat CXR showed atelectasis and increased broncho- alveolar markings Leukocytosis could be secondary to steroids or atelectasis initially started on Vanco/zosyn/levofloxacin day after admission stopped the vanco continued zosyn and levofloxacin until discharge will stop zosyn now and continue another 4 days of levofloxacin with lactobacillus imagimg showed suspected acute on chronic diastolic CHF , started on lasix 20mg IV BID and I&Os showed -4.5L due to a small pump in his creatinine to 1.3, lasix was swicthed upon discharge to only 10mg po daily for his Recent occipital stroke - Continued atorvastatin and plavix. also has 2mm left upper lobe nodule, very small in size, Cont to monitor stable for discharge to rehab Total Time Spent: Greater than 30 minutes This includes examination of the patient, discharge planning, medication reconciliation, and communication with other providers. Discharge Instructions Please refer to the electronic Patient Visit Report (Discharge Instructions) for additional information.
[2017-03-26] MEDS ORDERED: METH4PAK PO (09:54)
[2017-03-26] MEDS ORDERED: IPRATROPIUM BROMIDE/ALBUTEROL respimat INH INH SCH (17:00)
[2017-03-27] MEDS ORDERED: ATORVASTATIN 40 MG TAB PO SCH (09:00)
== END 2017-03-26 16:50 | DRG 193 ==
LOC: ENRESERVTM → ENRESERVDT → EDBD 11:32 → C.EDC 11:33 → C.2T 14:51
PROVIDERS: ADMIT Hospitalist; ATTEND Internal Medicine
DX: J18.9 Pneumonia, unspecified organism (principal); J96.01 Acute respiratory failure with hypoxia; N18.3 Chronic kidney disease, stage 3 (moderate); E78.5 Hyperlipidemia, unspecified; D72.829 Elevated white blood cell count, unspecified; Z87.440 Personal history of urinary (tract) infections; Z86.73 Personal history of transient ischemic attack (TIA), and cerebral infarction without residual deficits

== ENCOUNTER → 2017-06-26 | Outpatient (CLI) | payer OTHER, BC ==
[~2017-06-26] MED LIST changes: +ACET-1175 PO; +ACET-1256 PO; +ATOR-24 PO; -Boost PO; +CHOL1000 PO; +CLOP1TAB15 PO; +LCTXP PO; +NUTR-977 PO; +ONDA4TAB46 PO; +POLY335019 PO; +SENN-65 PO; +SENN8.6T87 PO; +TRMCR515 TOP
[2017-06-26 09:46] LABS: BASO % 0.4 %; BASO ABS # 0.02 K/uL (0-0.2); COMPLETE YES; EOS % 1.2 %; HEMATOCRIT 35.7 % (42-52); IG% 0.2 %; LYMPH ABS # 1.38 K/uL (1.2-3.4); MEAN CELL VOLUME 81.3 fL (80-100); MEAN CORPUSCULAR HGB CONC 31.9 g/dl (32-36); MEAN PLATELET VOLUME 10.4 fL (7.4-10.4); NEUT % 56.2 %; PLATELET COUNT 318 K/uL (130-400); RED BLOOD COUNT 4.39 M/uL (4.7-6.1); WHITE BLOOD COUNT 4.93 K/uL (4.8-10.8)
[2017-06-26 09:54] LABS: ALT/SGPT 15 U/L (12-78); BLOOD UREA NITROGEN 15 mg/dl (7-18); BUN/CREATININE RATIO 16.4 (10-20); CALCIUM 8.7 mg/dl (8.5-10.1); CARBON DIOXIDE 26 mmol/L (21-32); CHLORIDE 107 mmol/L (98-107); GLUCOSE 82 mg/dl (70-99); POTASSIUM 3.9 mmol/L (3.5-5.1); SODIUM 140 mmol/L (136-145)
[2017-06-26 09:57] LABS: ALB/GLOB RATIO 0.5 (0.9-2); ALKALINE PHOSPHATASE 76 U/L (45-117); AST/SGOT 13 U/L (15-37)
== END | disposition home or self-care (01) ==
LOC: C.LABWYN 09:26
PROVIDERS: ATTEND Nurse Practitioner Adult Health
DX: N18.3 Chronic kidney disease, stage 3 (moderate) (principal); M19.90 Unspecified osteoarthritis, unspecified site; R53.1 Weakness; R25.1 Tremor, unspecified; R33.9 Retention of urine, unspecified

== ENCOUNTER → 2017-07-17 | Outpatient (CLI) | payer OTHER, BC ==
[2017-07-17 08:16] LABS: BASO % 0.2 %; BASO ABS # 0.01 K/uL (0-0.2); COMPLETE YES; EOS % 1.6 %; HEMATOCRIT 33.7 % (42-52); IG% 0.4 %; LYMPH ABS # 1.46 K/uL (1.2-3.4); MEAN CELL VOLUME 81.2 fL (80-100); MEAN CORPUSCULAR HEMOGLOBIN 26.7 pg (25-34); MEAN CORPUSCULAR HGB CONC 32.9 g/dl (32-36); MEAN PLATELET VOLUME 10.5 fL (7.4-10.4); MONO % 14.8 %; PLATELET COUNT 332 K/uL (130-400); RED BLOOD COUNT 4.15 M/uL (4.7-6.1); WHITE BLOOD COUNT 5.61 K/uL (4.8-10.8)
[2017-07-17 08:23] LABS: ALT/SGPT 15 U/L (12-78); BLOOD UREA NITROGEN 14 mg/dl (7-18); BUN/CREATININE RATIO 15.7 (10-20); CALCIUM 9.3 mg/dl (8.5-10.1); CARBON DIOXIDE 26 mmol/L (21-32); CHLORIDE 107 mmol/L (98-107); CHOLESTEROL 106 mg/dl (0-200); CREATININE 0.86 mg/dl (0.60-1.40); GLUCOSE 85 mg/dl (70-99); SODIUM 139 mmol/L (136-145)
[2017-07-17 08:34] LABS: ALB/GLOB RATIO 0.6 (0.9-2); ALKALINE PHOSPHATASE 81 U/L (45-117); AST/SGOT 12 U/L (15-37); CHOLESTEROL/HDL RATIO 2.4; HDL CHOLESTEROL 44 mg/dl; LDL CHOLESTEROL CALCULATED 52 mg/dl; THYROID STIMULATING HORMONE 0.993 uIu/ml (0.300-4.500); TRIGLYCERIDES 49 mg/dl (0-150); VERY LOW DENSITY LIPOPROT CALC 10 mg/dl
== END | disposition home or self-care (01) ==
LOC: C.LABWYN 07:56
PROVIDERS: ATTEND Internal Medicine Geriatric Medicine
DX: Z01.89 Encounter for other specified special examinations (principal)

== ENCOUNTER → 2017-08-12 | Outpatient (CLI) | payer OTHER, BC ==
[2017-08-12 08:29] LABS: BASO % 0.5 %; BASO ABS # 0.03 K/uL (0-0.2); COMPLETE YES; EOS % 9.8 %; HEMATOCRIT 35.2 % (42-52); IG% 0.3 %; LYMPH % 16.1 %; LYMPH ABS # 0.94 K/uL (1.2-3.4); MEAN CELL VOLUME 79.8 fL (80-100); MEAN CORPUSCULAR HEMOGLOBIN 27.2 pg (25-34); MEAN CORPUSCULAR HGB CONC 34.1 g/dl (32-36); MEAN PLATELET VOLUME 10.2 fL (7.4-10.4); MONO % 15.2 %; NEUT % 58.1 %; PLATELET COUNT 280 K/uL (130-400); RED BLOOD COUNT 4.41 M/uL (4.7-6.1); WHITE BLOOD COUNT 5.84 K/uL (4.8-10.8)
== END | disposition home or self-care (01) ==
LOC: C.LABWYN 08:09
PROVIDERS: ATTEND Internal Medicine Geriatric Medicine
DX: D64.9 Anemia, unspecified (principal)

== ENCOUNTER → 2017-08-19 | Outpatient (CLI) | payer OTHER, BC ==
[2017-08-19 08:24] LABS: BASO % 0.6 %; BASO ABS # 0.03 K/uL (0-0.2); COMPLETE YES; EOS % 11.6 %; HEMATOCRIT 35.1 % (42-52); IG% 0.2 %; LYMPH % 18.5 %; LYMPH ABS # 0.94 K/uL (1.2-3.4); MEAN CELL VOLUME 80.7 fL (80-100); MEAN CORPUSCULAR HEMOGLOBIN 26.4 pg (25-34); MEAN CORPUSCULAR HGB CONC 32.8 g/dl (32-36); MEAN PLATELET VOLUME 10.4 fL (7.4-10.4); MONO % 18.7 %; NEUT % 50.4 %; PLATELET COUNT 276 K/uL (130-400); RED BLOOD COUNT 4.35 M/uL (4.7-6.1); WHITE BLOOD COUNT 5.08 K/uL (4.8-10.8)
[2017-08-19 08:36] LABS: ALT/SGPT 14 U/L (12-78); AST/SGOT 14 U/L (15-37); BLOOD UREA NITROGEN 16 mg/dl (7-18); CALCIUM 8.7 mg/dl (8.5-10.1); CARBON DIOXIDE 23 mmol/L (21-32); CHLORIDE 106 mmol/L (98-107); CHOLESTEROL 102 mg/dl (0-200); CREATININE 0.89 mg/dl (0.60-1.40); GLUCOSE 87 mg/dl (70-99); POTASSIUM 3.9 mmol/L (3.5-5.1); SODIUM 138 mmol/L (136-145); TRIGLYCERIDES 63 mg/dl (0-150); VERY LOW DENSITY LIPOPROT CALC 13 mg/dl
[2017-08-19 08:46] LABS: ALB/GLOB RATIO 0.6 (0.9-2); ALKALINE PHOSPHATASE 82 U/L (45-117); CHOLESTEROL/HDL RATIO 2.7; HDL CHOLESTEROL 38 mg/dl; LDL CHOLESTEROL CALCULATED 51 mg/dl; THYROID STIMULATING HORMONE 0.658 uIu/ml (0.300-4.500)
== END | disposition home or self-care (01) ==
LOC: C.LABWYN 08:05
PROVIDERS: ATTEND Internal Medicine Geriatric Medicine
DX: E03.9 Hypothyroidism, unspecified (principal); I50.9 Heart failure, unspecified; I63.9 Cerebral infarction, unspecified; N31.9 Neuromuscular dysfunction of bladder, unspecified

== ENCOUNTER 2017-08-21 02:57 | Emergency (ER) | payer OTHER, BC ==
[~2017-08-21] VITALS: Ht 167.6 cm; Wt 55.3 kg
[~2017-08-21 02:57] MED LIST changes: -ACET-1175 PO; -ATOR-24 PO; -CHOL1000 PO; -CLOP1TAB15 PO; -NUTR-977 PO; -ONDA4TAB46 PO; -SENN8.6T87 PO; -TRMCR515 TOP
[2017-08-21 03:02] VITALS: TEMP 36.4; Ht 167.6 cm; Wt 55.3 kg
[2017-08-21] MEDS ORDERED: NUTR-977 PO (03:19)
[2017-08-21] MEDS ORDERED: SENN8.6T87 PO (03:19)
[2017-08-21] MEDS ORDERED: ACET-1175 PO (03:19)
[2017-08-21] MEDS ORDERED: ATOR-24 PO (03:19)
[2017-08-21] MEDS ORDERED: CLOP1TAB15 PO (03:19)
[2017-08-21] MEDS ORDERED: TRMCR515 TOP (03:19)
[2017-08-21] MEDS ORDERED: CHOL1000 PO (03:19)
[2017-08-21] MEDS ORDERED: ONDA4TAB46 PO (03:20)
[2017-08-21 03:54] LABS: BASO % 0.5 %; BASO ABS # 0.03 K/uL (0-0.2); COMPLETE YES; EOS % 12.3 %; HEMATOCRIT 39.8 % (42-52); IG% 0.4 %; LYMPH % 19.8 %; LYMPH ABS # 1.11 K/uL (1.2-3.4); MEAN CELL VOLUME 81.2 fL (80-100); MEAN CORPUSCULAR HEMOGLOBIN 26.3 pg (25-34); MEAN CORPUSCULAR HGB CONC 32.4 g/dl (32-36); MEAN PLATELET VOLUME 9.9 fL (7.4-10.4); MONO % 17.9 %; NEUT % 49.1 %; PLATELET COUNT 275 K/uL (130-400)
[2017-08-21 04:13] LABS: BUN/CREATININE RATIO 17.2 (10-20); CALCIUM 8.7 mg/dl (8.5-10.1); CREATININE 0.93 mg/dl (0.60-1.40); POTASSIUM 3.7 mmol/L (3.5-5.1)
--- NOTE | 2017-08-21 04:54 | EMERGENCY ROOM VISIT NOTE ---
ED Visit Note First contact with patient: 03:03 I saw this patient in conjunction with Janey Dhillon PA-C. I agree with her decision making and treatment plan.
--- NOTE | 2017-08-21 04:59 | EMERGENCY ROOM VISIT NOTE ---
History First contact with patient: 03:03 Chief Complaint: LACERATION/CUT (SUT/DERMABOND) Stated Complaint: FALL Nursing Triage Summary: pt arrives BLS from [facility] [place]. pt found on floor. laceration to R eye. well approximated. no current bleeding. pt denies pain. pt unsure how he ended up on floor. pt takes Plavix 75mg daily History of Present Illness The patient is a 82 year old male who presents to the Emergency Room via BLS from [facility] with complaints of a fall. The patient reports that he woke up on the floor beside the bed and that he must have rolled out of bed. He denies any chest pain, shortness of breath, dizziness or lightheadedness. He has no complaints at this time. He states that he takes Plavix daily. He denies any headache, neck pain, loss of consciousness, blurred vision, slurred speech, numbness or weakness. Review of Systems A complete 10 point review of systems was reviewed with the patient with pertinent positives and negatives as per history of present illness. All else were negative. Past Medical/Surgical History Medical Problems: (1) Bladder dysfunction (2) Hypoxia (3) Self-catheterizes urinary bladder (4) UTI (lower urinary tract infection) Surgical Problems: (1) H/O cystoscopy (2) H/O lumbar discectomy Social History Smoking Status: Never Smoker Drug Use: none Marital Status: Housing Status: lives alone Occupation Status: retired Current/Historical Medications Scheduled Atorvastatin (Lipitor), 40 MG PO HS Cholecalciferol (Vitamin D3), 1,000 UNITS PO QAM Clopidogrel (Plavix), 75 MG PO QAM Enteral Nutrition Formula (Ensure Plus Vanilla), 1 CAN PO QDB Sennosides (Senna-Time), 8.6 MG PO QAM Scheduled PRN Acetaminophen (Tylenol), 650 MG PO Q4H PRN for Pain or Fever Ondansetron Hcl (Zofran), 4 MG PO Q6H PRN for Nausea Triamcinolone Acet (Triamcinolone Acetonide), 1 APPLN TOP BID PRN for RASH Physical Exam Vital Signs Date Time Temp Pulse Resp B/P (MAP) Pulse Ox O2 Delivery O2 Flow Rate FiO2 08/21/17 05:57 68 24 129/80 93 08/21/17 04:45 72 18 137/91 92 Room Air 08/21/17 03:02 36.4 71 17 143/87 95 Room Air Physical Exam VITALS: Vitals are noted on the nurse's note and reviewed by myself. Vital signs stable. GENERAL: This is an 82-year-old male, in no acute distress, nondiaphoretic, well -developed well-nourished. SKIN: There is a 1 cm non-gaping laceration to the lateral aspect of the right eyebrow. There is no active bleeding. HEAD: Normocephalic atraumatic. EARS: External auditory canals clear, tympanic membranes pearly javed without erythema or effusion bilaterally. No hemotympanum. EYES: Pupils equal round and reactive to light and accommodation. Extraocular movements intact. MOUTH: Mucous membranes moist. NECK: Supple without nuchal rigidity. Cervical spine is nontender. HEART: Regular rate and rhythm without murmurs gallops or rubs. LUNGS: Clear to auscultation bilaterally without wheezes, rales or rhonchi. MUSCULOSKELETAL: Full range of motion throughout. Strength 5/5 throughout. NEURO: Patient was alert and oriented to person place and time. Normal sensation to light and sharp touch. No focal neurological deficits. Medical Decision & Procedures ER Provider Diagnostic Interpretation: CT HEAD: No acute intracranial abnormality. Chronic small vessels disease and senescent changes. Remote lacunar infarct within the left basal ganglia. Small remote infarcts within the right and left cerebellum. Mild mucosal thickening in the paranasal sinuses. No acute fracture. Radiologist: Brian Mae MD CT C SPINE: No acute fracture or traumatic malalignment. Multilevel degenerative changes. Radiologist: Brian Mae MD Laboratory Results 08/21/17 03:35 Red Blood Count 4.90, Mean Corpuscular Volume 81.2, Mean Corpuscular Hemoglobin 26.3, Mean Corpuscular Hemoglobin Concent 32.4, Mean Platelet Volume 9.9, Neutrophils (%) (Auto) 49.1, Lymphocytes (%) (Auto) 19.8, Monocytes (%) (Auto) 17.9, Eosinophils (%) (Auto) 12.3, Basophils (%) (Auto) 0.5, Neutrophils # (Auto ) 2.75, Lymphocytes # (Auto) 1.11, Monocytes # (Auto) 1.00, Eosinophils # (Auto ) 0.69, Basophils # (Auto) 0.03 08/21/17 03:35 Test 08/21/17 03:35 White Blood Count 5.60 K/uL (4.8-10.8) Red Blood Count 4.90 M/uL (4.7-6.1) Hemoglobin 12.9 g/dL (14.0-18.0) Hematocrit 39.8 % (42-52) Mean Corpuscular Volume 81.2 fL (80-100) Mean Corpuscular Hemoglobin 26.3 pg (25-34) Mean Corpuscular Hemoglobin Concent 32.4 g/dl (32-36) Platelet Count 275 K/uL (130-400) Mean Platelet Volume 9.9 fL (7.4-10.4) Neutrophils (%) (Auto) 49.1 % Lymphocytes (%) (Auto) 19.8 % Monocytes (%) (Auto) 17.9 % Eosinophils (%) (Auto) 12.3 % Basophils (%) (Auto) 0.5 % Neutrophils # (Auto) 2.75 K/uL (1.4-6.5) Lymphocytes # (Auto) 1.11 K/uL (1.2-3.4) Monocytes # (Auto) 1.00 K/uL (0.11-0.59) Eosinophils # (Auto) 0.69 K/uL (0-0.5) Basophils # (Auto) 0.03 K/uL (0-0.2) RDW Standard Deviation 53.6 fL (36.4-46.3) RDW Coefficient of Variation 18.0 % (11.5-14.5) Immature Granulocyte % (Auto) 0.4 % Immature Granulocyte # (Auto) 0.02 K/uL (0.00-0.02) Anion Gap 6.0 mmol/L (3-11) Est Creatinine Clear Calc Drug Dose 47.1 ml/min Estimated GFR () 87.7 Estimated GFR (Non- 75.7 BUN/Creatinine Ratio 17.2 (10-20) Calcium Level 8.7 mg/dl (8.5-10.1) ECG Rate (beats per minute): 63 Rhythm: normal sinus Findings: other (low voltage) Medical Decision Differential diagnosis includes mechanical fall, closed head injury, intracranial hemorrhage, skull fracture, syncope, among others. The patient is an 82-year-old male who presents today complaining of a fall and head injury. CT of the head and cervical spine were unremarkable. Labs were unremarkable. The patient does not recall how the fall happened, however he believes that he rolled out of bed onto the floor and this seems consistent with his exam. Dermabond was used to approximate a small superficial laceration on the face. Patient tolerated the procedure well. He was discharged home to follow closely with his primary care provider. The patient was independently evaluated by Dr. Arvizu, ED attending physician, who agreed with my assessment and treatment plan. Based on the patient's presentation and work up, I feel the patient is stable for outpatient treatment. The patient was educated to return to the emergency department for any worsening of their current condition or new/concerning symptoms. He will follow up with his PCP. Medication Reconcilliation Current Medication List: was personally reviewed by me Blood Pressure Screening Patient's blood pressure: Normal blood pressure Impression Primary Impression: Closed head injury Additional Impression: Facial laceration Departure Information Dispostion Home / Self-Care Condition GOOD Referrals Van Rivas M.D. (PCP) Patient Instructions My [facility] Additional Instructions Follow-up with your primary care provider today for recheck. The skin glue will fall off on its own. Do not apply any ointments or lotions to this. Return to the emergency department with any new/concerning symptoms. Problem Qualifiers Primary Impression: Closed head injury Encounter type: initial encounter Qualified Codes: S09.90XA - Unspecified injury of head, initial encounter Additional Impression: Facial laceration Encounter type: initial encounter Qualified Codes: S01.81XA - Laceration without foreign body of other part of head, initial encounter
[2017-08-21 05:57] VITALS: BP 129/80; PULSE 68; O2SAT 93
--- NOTE | 2017-08-21 07:15 | DIAGNOSTIC IMAGING REPORT ---
CT OF THE HEAD WITHOUT CONTRAST CLINICAL HISTORY: Fall with head injury. COMPARISON STUDY: Head CT March 19, 2017 and MRI of the brain March 20, 2017. TECHNIQUE: Helical axial images of the head were obtained without IV contrast. Automated exposure control was utilized for the study. A dose lowering technique was utilized adhering to the principles of ALARA. FINDINGS: No acute intracranial hemorrhage, midline shift or mass effect is present. Ventricular system is stable. Basilar cisterns are patent. No extra-axial collections are present. Multiple old lacunar infarcts are noted. White matter hypodensity suggests small vessel disease. There are no findings to suggest acute dural sinus thrombosis or acute territorial infarct. There are no calvarial fractures. IMPRESSION: 1. No acute intracranial findings. 2. No calvarial fracture. Electronically signed by: Jeremy Mercado M.D. 08/21/2017 7:14 AM Dictated Date/Time: 08/21/2017 7:11 AM
--- NOTE | 2017-08-21 08:04 | DIAGNOSTIC IMAGING REPORT ---
CERVICAL SPINE W/O CLINICAL HISTORY: 82 years-old Male presenting with fall, head injury. TECHNIQUE: Multidetector CT of the cervical spine was performed without the use of intravenous contrast. IV contrast: None. A dose lowering technique was used consistent with the principles of ALARA (as low as reasonably achievable). COMPARISON: None. CT DOSE (mGy.cm): The estimated cumulative dose is 997.59 mGy.cm. FINDINGS: [employer] topogram: Unremarkable. Slight reversal of normal cervical lordosis centered at C3-4. Vertebral body heights maintained. 3 mm of retrolisthesis of C5 on C6. Multilevel intervertebral disc height loss most prominently in the mid to lower cervical spine. No acute fracture or subluxation. Multilevel degenerative changes further detailed below: C2-3: Uncovertebral and facet arthropathy asymmetrically on the left result in mild osseous neural foraminal narrowing. No osseous spinal canal narrowing. C3-4: Disc osteophyte complex mildly effaces the ventral thecal sac. Uncovertebral hypertrophy and right facet arthropathy result in mild to moderate right osseous neural foraminal narrowing. C4-5: Disc osteophyte complex minimally effaces the ventral thecal sac. In combination with uncovertebral hypertrophy, moderate left neural foraminal narrowing results. C5-6: Retrolisthesis mildly narrows the thecal sac at this level. Disc osteophyte complex and uncovertebral hypertrophy result in moderate bilateral osseous neural foraminal narrowing. C6-7: Disc osteophyte complex and uncovertebral hypertrophy result in moderate bilateral osseous neural foraminal narrowing. No significant spinal canal narrowing. C7-T1: Disc osteophyte complex and uncovertebral hypertrophy result in mild to moderate bilateral osseous neural foraminal narrowing. No significant spinal canal narrowing. Paraspinal soft tissues within normal limits. Atherosclerosis noted. Lung apices clear. IMPRESSION: 1. No acute osseous injury of the cervical spine. 2. Multilevel degenerative changes with varying degrees of osseous neural foraminal narrowing. Spinal canal narrowing most significant at C3-4. Electronically signed by: Michael Rojas M.D. 08/21/2017 8:03 AM Dictated Date/Time: 08/21/2017 7:27 AM
== END 2017-08-21 05:57 | disposition home or self-care (01) ==
LOC: EDBD 02:57 → C.EDA 02:58
DX: S09.90XA Unspecified injury of head, initial encounter (principal); S01.81XA Laceration without foreign body of other part of head, initial encounter; W06.XXXA Fall from bed, initial encounter; Y92.193 Bedroom in other specified residential institution as the place of occurrence of the external cause; Z87.440 Personal history of urinary (tract) infections; Z79.02 Long term (current) use of antithrombotics/antiplatelets; Z79.899 Other long term (current) drug therapy

== ENCOUNTER 2017-12-11 19:55 | Emergency (ER) | payer OTHER, BC ==
[~2017-12-11] VITALS: Ht 167.6 cm; Wt 56.7 kg
[~2017-12-11 19:55] MED LIST changes: +ACET-1175 PO; -ACET-1256 PO; +ATOR-24 PO; +CHOL1000 PO; +CLOP1TAB15 PO; -LCTXP PO; -LPT40 PO; +NUTR-977 PO; +ONDA4TAB46 PO; -PLV75 PO; -POLY335019 PO; -SENN-65 PO; +SENN8.6T87 PO; +TRMCR515 TOP
[2017-12-11] MEDS ORDERED: SODIUM CHLORIDE 0.9% 1000ML 1,000 ML IV SCH (20:01)
--- NOTE | 2017-12-11 20:20 | DIAGNOSTIC IMAGING REPORT ---
HEAD WITHOUT CONTRAST (CT) CLINICAL HISTORY: 82 years-old Male with Stroke. Acute strokelike symptoms TECHNIQUE: Multiple axial CT images of the head were obtained without contrast. A dose lowering technique was utilized adhering to the principles of ALARA. CT DOSE: 712.55 mGy.cm COMPARISON: CT head and cervical spine 08/21/2017. FINDINGS: No acute intracranial hemorrhage, midline shift, intracranial mass, hydrocephalus, territorial ischemia or abnormal extra-axial collection. Moderate atrophy with ex vacuo ventriculomegaly. Advanced chronic microvascular ischemic changes with remote left thalamus, right chang radiata and bilateral cerebellar hemispheric infarctions. Multiple remote lacunar infarctions of the basal ganglia. Vascular calcifications are seen at the level of the skull base. The calvarium is intact. The mastoid air cells, and middle ear cavities are clear. Mild polypoid mucosal thickening of the anterior right maxillary antrum. Mild leftward bowing and spurring of nasal septum. Hypoplasia of the right frontal sinus. IMPRESSION: No acute intracranial abnormality. The above report was generated using voice recognition software. It may contain grammatical, syntax or spelling errors. Electronically signed by: Lucas Stokes M.D. 12/11/2017 8:19 PM Dictated Date/Time: 12/11/2017 8:15 PM
[2017-12-11 20:22] VITALS: Ht 167.6 cm; Wt 56.7 kg
[2017-12-11] MEDS ORDERED: ALBUT/IPRATROP 3MG/0.5MG NEB 3 ML VIAL INH ONE (20:30)
[2017-12-11 20:32] VITALS: O2SAT 93
--- NOTE | 2017-12-11 20:36 | DIAGNOSTIC IMAGING REPORT ---
CHEST ONE VIEW PORTABLE HISTORY: 82 years-old Male Stroke acute strokelike symptoms COMPARISON: Chest radiograph 03/24/2017 TECHNIQUE: Portable AP view of the chest FINDINGS: Cardiac silhouette is upper limits of normal in size. Tortuosity and atherosclerosis of the aorta. No pneumothorax, pleural effusion, focal airspace consolidation or overt pulmonary edema. Calcified granuloma of the lateral left lung base. Minimal subsegmental atelectasis or scarring. Degenerative changes of the shoulders and spine. IMPRESSION: No acute process. The above report was generated using voice recognition software. It may contain grammatical, syntax or spelling errors. Electronically signed by: Lucas Stokes M.D. 12/11/2017 8:34 PM Dictated Date/Time: 12/11/2017 8:33 PM
[2017-12-11 20:44] LABS: BASO % 0.4 %; BASO ABS # 0.03 K/uL (0-0.2); EOS % 2.5 %; EOS ABS # 0.21 K/uL (0-0.5); HEMATOCRIT 43.4 % (42-52); IG# 0.01 K/uL (0.00-0.02); LYMPH % 24.3 %; LYMPH ABS # 2.03 K/uL (1.2-3.4); MEAN CELL VOLUME 88.6 fL (80-100); MEAN CORPUSCULAR HEMOGLOBIN 30.6 pg (25-34); MEAN CORPUSCULAR HGB CONC 34.6 g/dl (32-36); MEAN PLATELET VOLUME 10.9 fL (7.4-10.4); MONO % 11.5 %; MONO ABS # 0.96 K/uL (0.11-0.59); NEUT % 61.2 %; PLATELET COUNT 191 K/uL (130-400); RED CELL DISTRIBUTION WIDTH CV 15.8 % (11.5-14.5); WHITE BLOOD COUNT 8.34 K/uL (4.8-10.8)
[2017-12-11 21:01] LABS: CREATININE 1.06 mg/dl (0.60-1.40); POTASSIUM 3.7 mmol/L (3.5-5.1)
[2017-12-11 21:06] LABS: CKMB 0.9 ng/ml (0.5-3.6)
[2017-12-11 21:14] LABS: INR 1.1 (0.9-1.1); PTT PATIENT 27.7 SECONDS (21.0-31.0)
[2017-12-11 21:25] VITALS: PULSE 82; O2SAT 92
[2017-12-11] MEDS ORDERED: ALBUTEROL HFA 8 GM INHALER INH ONE (22:15)
--- NOTE | 2017-12-11 22:20 | EMERGENCY ROOM VISIT NOTE ---
History Report prepared by Steffany: Di Lozano Under the Supervision of: Dr. Mega Ritchie M.D. First contact with patient: 20:00 Chief Complaint: STROKE SYMPTOMS Stated Complaint: POSS. STROKE/ [facility] History of Present Illness The patient is an 82 year old male who presents to the Emergency Room with persistent stroke symptoms starting less than 2 hours ago. The patient presents to the ED by EMS from [facility]. At 1800, the patient was at baseline. Later when they checked on him, they found he had a right facial droop and slurred speech. He states that he is feeling fine. His pulse ox was in the [address] in. He has a history of urosepsis. Source of History: patient, EMS Onset: 2 hours ago Position: other (global) Quality: other (stroke symptoms) Timing: other (persistent) Note: Pt has right facial droop and slurred speech. Review of Systems See HPI for pertinent positives & negatives. A total of 10 systems reviewed and were otherwise negative. Past Medical & Surgical Medical Problems: (1) Bladder dysfunction (2) Hypoxia (3) Self-catheterizes urinary bladder (4) UTI (lower urinary tract infection) Surgical Problems: (1) H/O cystoscopy (2) H/O lumbar discectomy Family History Noncontributory secondary to age. Social History Smoking Status: Never Smoker Drug Use: none Marital Status: Housing Status: lives alone Occupation Status: retired Current/Historical Medications Scheduled Atorvastatin (Lipitor), 40 MG PO HS Cholecalciferol (Vitamin D3), 1,000 UNITS PO QAM Clopidogrel (Plavix), 75 MG PO QAM Enteral Nutrition Formula (Ensure Plus Vanilla), 1 CAN PO QDB Sennosides (Senna-Time), 8.6 MG PO QAM Scheduled PRN Acetaminophen (Tylenol), 650 MG PO Q4H PRN for Pain or Fever Ondansetron Hcl (Zofran), 4 MG PO Q6H PRN for Nausea Triamcinolone Acet (Triamcinolone Acetonide), 1 APPLN TOP BID PRN for RASH Allergies Coded Allergies: Gadolinium (Verified Adverse Reaction, Mild, GI SYMPTOMS, 12/11/17) developed nausea Physical Exam Vital Signs Date Time Temp Pulse Resp B/P (MAP) Pulse Ox O2 Delivery O2 Flow Rate FiO2 12/11/17 23:05 78 20 132/80 97 12/11/17 21:36 85 18 134/89 93 Nasal Cannula 2.0 12/11/17 21:25 82 14 92 Nasal Cannula 2.0 12/11/17 20:32 93 Room Air 12/11/17 20:27 86 12/11/17 20:13 80 16 132/95 93 Room Air Physical Exam GENERAL: Patient is a healthy-appearing well-nourished male HEAD: Normocephalic atraumatic EYES: Ocular movements intact pupils equal and react to light OROPHARYNX mucous membranes are moist no exudates present no erythema or edema present NECK: Supple no nuchal rigidity CHEST: Good equal expansion LUNGS: Clear and equal to auscultation CARDIAC: Normal S1 and S2 ABDOMEN: Soft nontender no guarding BACK: No CVA tenderness EXTREMITIES: No pain upon palpation normal muscle strength in all groups no clubbing cyanosis or edema NEURO: Patient is following commands and answering questions appropriately. Alert and oriented x3 Cranial Nerves 2-12 grossly intact Medical Decision & Procedures ER Provider Diagnostic Interpretation: X-ray results as stated below per interpretation by me and the radiologist. Radiology results as stated below per my review and radiologist interpretation: CHEST ONE VIEW PORTABLE HISTORY: 82 years-old Male Stroke acute strokelike symptoms COMPARISON: Chest radiograph 03/24/2017 TECHNIQUE: Portable AP view of the chest FINDINGS: Cardiac silhouette is upper limits of normal in size. Tortuosity and atherosclerosis of the aorta. No pneumothorax, pleural effusion, focal airspace consolidation or overt pulmonary edema. Calcified granuloma of the lateral left lung base. Minimal subsegmental atelectasis or scarring. Degenerative changes of the shoulders and spine. IMPRESSION: No acute process. The above report was generated using voice recognition software. It may contain grammatical, syntax or spelling errors. Electronically signed by: Lucas Stokes M.D. 12/11/2017 8:34 PM Dictated Date/Time: 12/11/2017 8:33 PM HEAD WITHOUT CONTRAST (CT) CLINICAL HISTORY: 82 years-old Male with Stroke. Acute strokelike symptoms TECHNIQUE: Multiple axial CT images of the head were obtained without contrast. A dose lowering technique was utilized adhering to the principles of ALARA. CT DOSE: 712.55 mGy.cm COMPARISON: CT head and cervical spine 08/21/2017. FINDINGS: No acute intracranial hemorrhage, midline shift, intracranial mass, hydrocephalus, territorial ischemia or abnormal extra-axial collection. Moderate atrophy with ex vacuo ventriculomegaly. Advanced chronic microvascular ischemic changes with remote left thalamus, right chang radiata and bilateral cerebellar hemispheric infarctions. Multiple remote lacunar infarctions of the basal ganglia. Vascular calcifications are seen at the level of the skull base. The calvarium is intact. The mastoid air cells, and middle ear cavities are clear. Mild polypoid mucosal thickening of the anterior right maxillary antrum. Mild leftward bowing and spurring of nasal septum. Hypoplasia of the right frontal sinus. IMPRESSION: No acute intracranial abnormality. The above report was generated using voice recognition software. It may contain grammatical, syntax or spelling errors. Electronically signed by: Lucas Stokes M.D. 12/11/2017 8:19 PM Dictated Date/Time: 12/11/2017 8:15 PM Laboratory Results 12/11/17 20:22 Red Blood Count 4.90, Mean Corpuscular Volume 88.6, Mean Corpuscular Hemoglobin 30.6, Mean Corpuscular Hemoglobin Concent 34.6, Mean Platelet Volume 10.9, Neutrophils (%) (Auto) 61.2, Lymphocytes (%) (Auto) 24.3, Monocytes (%) (Auto) 11.5, Eosinophils (%) (Auto) 2.5, Basophils (%) (Auto) 0.4, Neutrophils # (Auto ) 5.10, Lymphocytes # (Auto) 2.03, Monocytes # (Auto) 0.96, Eosinophils # (Auto ) 0.21, Basophils # (Auto) 0.03 12/11/17 20:22 Test 12/11/17 20:22 12/11/17 20:37 12/11/17 21:00 White Blood Count 8.34 K/uL (4.8-10.8) Red Blood Count 4.90 M/uL (4.7-6.1) Hemoglobin 15.0 g/dL (14.0-18.0) Hematocrit 43.4 % (42-52) Mean Corpuscular Volume 88.6 fL (80-100) Mean Corpuscular Hemoglobin 30.6 pg (25-34) Mean Corpuscular Hemoglobin Concent 34.6 g/dl (32-36) Platelet Count 191 K/uL (130-400) Mean Platelet Volume 10.9 fL (7.4-10.4) Neutrophils (%) (Auto) 61.2 % Lymphocytes (%) (Auto) 24.3 % Monocytes (%) (Auto) 11.5 % Eosinophils (%) (Auto) 2.5 % Basophils (%) (Auto) 0.4 % Neutrophils # (Auto) 5.10 K/uL (1.4-6.5) Lymphocytes # (Auto) 2.03 K/uL (1.2-3.4) Monocytes # (Auto) 0.96 K/uL (0.11-0.59) Eosinophils # (Auto) 0.21 K/uL (0-0.5) Basophils # (Auto) 0.03 K/uL (0-0.2) RDW Standard Deviation 51.0 fL (36.4-46.3) RDW Coefficient of Variation 15.8 % (11.5-14.5) Immature Granulocyte % (Auto) 0.1 % Immature Granulocyte # (Auto) 0.01 K/uL (0.00-0.02) Prothrombin Time 11.7 SECONDS (9.0-12.0) Prothromb Time International Ratio 1.1 (0.9-1.1) Activated Partial Thromboplast Time 27.7 SECONDS (21.0-31.0) Partial Thromboplastin Ratio 1.1 Anion Gap 8.0 mmol/L (3-11) Est Creatinine Clear Calc Drug Dose 42.3 ml/min Estimated GFR () 74.9 Estimated GFR (Non- 64.6 BUN/Creatinine Ratio 21.7 (10-20) Calcium Level 9.0 mg/dl (8.5-10.1) Magnesium Level 1.8 mg/dl (1.8-2.4) Total Creatine Kinase 43 U/L (39-308) Creatine Kinase MB 0.9 ng/ml (0.5-3.6) Creatine Kinase MB Ratio 2.1 (0-3.0) Troponin I 0.016 ng/ml (0-0.045) Bedside Glucose 89 mg/dl (70-99) Urine Color YELLOW Urine Appearance CLOUDY (CLEAR) Urine pH 6.0 (4.5-7.5) Urine Specific [place] 1.018 (1.000-1.030) Urine Protein TRACE (NEG) Urine Glucose (UA) NEG (NEG) Urine Ketones NEG (NEG) Urine Occult Blood TRACE (NEG) Urine Nitrite POS (NEG) Urine Bilirubin NEG (NEG) Urine Urobilinogen NEG (NEG) Urine Leukocyte Esterase LARGE (NEG) Urine WBC (Auto) >30 /hpf (0-5) Urine RBC (Auto) 0-4 /hpf (0-4) Urine Hyaline Casts (Auto) 1-5 /lpf (0-5) Urine Epithelial Cells (Auto) 10-20 /lpf (0-5) Urine Bacteria (Auto) 1+ (NEG) Labs reviewed by ED physician. Medications Administered Medications (Trade) Dose Ordered Sig/Geremias Route Start Time Stop Time Status Last Admin Dose Admin Sodium Chloride 1,000 ml @ 50 mls/hr Q20H IV 12/11/17 20:01 12/12/17 01:16 DC 12/11/17 21:11 50 MLS/HR Albuterol/ Ipratropium (Duoneb) 12 ml ONE ONCE INH 12/11/17 20:30 12/11/17 20:31 DC 12/11/17 20:30 12 ML ECG Indication: other (stroke symptoms) Rate (beats per minute): 82 Rhythm: normal sinus Findings: no acute ischemic change, no ectopy Change: Patient's electrocardiogram per my interpretation. ED Course 2000: NSS 1000 ml @ 50 mls/hr IV. 2015: Past medical records reviewed. The patient was evaluated in room A1. A complete history and physical examination was performed. 2030: Duoneb 12 ml INH. 2203: Upon reexamination the patient is resting comfortably. He would like to go back home. I discussed results and treatment plan with the patient. He verbalizes agreement and understanding. The patient is ready for discharge. 2215: Albuterol 2 puffs INH. Medical Decision Differential diagnosis: Etiologies such as metabolic, infection, hypo/hyperglycemia, electrolyte abnormalities, cardiac sources, intracerebral event, toxicologic, neurologic, as well as others were entertained. This is an 82-year-old male presents emergency department over concerns that he had a facial droop. Upon arrival to the emergency department the patient does not have facial droop. Based on the complaint is stroke alert was initiated however his NIH stroke scale is 0. CT the head is felt normal and patient does not have an elevation of white blood cell count patient was given an hour-long breathing treatment in the emergency department. Patient is actually angry he is here and does not have any complaints based on this I feel he can be safely discharged back to the custodial. If He has any other issues tonight he can promptly be sent back to the emergency department. I recommended that the patient follow-up with his primary care physician. Patient was in agreement with the treatment plan. Medication Reconcilliation Current Medication List: was personally reviewed by me Blood Pressure Screening Patient's blood pressure: Elevated blood pressure Blood pressure disposition: Elevated BP felt to be situational Impression Primary Impression: Bronchitis Scribe Attestation The scribe's documentation has been prepared under my direction and personally reviewed by me in its entirety. I confirm that the note above accurately reflects all work, treatment, procedures, and medical decision making performed by me. Departure Information Dispostion Home / Self-Care Referrals Van Rivas M.D. (PCP) Forms HOME CARE DOCUMENTATION FORM, IMPORTANT VISIT INFORMATION Patient Instructions Bronchitis Acute, My [facility] Additional Instructions Use inhaler twice every 6 hours Follow up with Dr Rivas's office You have been examined and treated today on an emergency basis only. This is not a substitute for, or an effort to provide, complete comprehensive medical care. It is impossible to recognize and treat all injuries or illnesses in a single emergency department visit. It is therefore important that you follow up closely with Dr Rivas. Call as soon as possible for an appointment. Thank you for your time and consideration. I look forward to speaking with you again soon. Please don't hesitate to call us if you have any questions.
[2017-12-11 23:05] VITALS: BP 132/80; PULSE 78; O2SAT 97
== END 2017-12-11 23:23 | disposition home or self-care (01) ==
LOC: EDBD 19:55 → C.EDA 19:56 → C.EDB 23:23
DX: J40 Bronchitis, not specified as acute or chronic (principal); R47.81 Slurred speech; R29.700 NIHSS score 0; R03.0 Elevated blood-pressure reading, without diagnosis of hypertension